=== PATIENT | female | born 1950 | race Caucasian/White ===

== ENCOUNTER → 2017-06-22 13:56 | Outpatient (REF) | payer MEDICARE, OTHER, SELFPAY ==
[2017-06-22 18:21] LABS: Basophils # 0.1 K/mm3 (0-0.2); Basophils % 0.6 % (0.1-2.0); Eosinophils # 0.1 K/mm3 (0.0-0.4); Eosinophils % 1.3 % (0.1-12.0); Hematocrit 48.1 % (37.0-47.0); Hemoglobin 15.9 g/dL (12.2-16.2); Mean Corpuscular Hemoglobin 29.5 pg (27.0-31.2); Mean Corpuscular Volume 89.4 fl (81-99); Mean Platelet Volume 8.9 fl (7.4-10.4); Monocytes # 0.3 K/mm3 (0.1-1.0); Monocytes % 3.4 % (1.7-9.3); Neutrophils # 5.5 K/mm3 (1.8-7.8); Neutrophils % 69.7 % (37.0-80.0); Platelet Count 298 K/mm3 (142-424); Red Blood Count 5.38 M/mm3 (4.20-5.40); Red Cell Distribution Width 13.1 % (11.5-17.5); White Blood Count 7.8 K/mm3 (4.8-10.8)
[2017-06-22 20:03] LABS: Alanine Aminotransferase 25 U/L (12-78); Albumin Level 3.8 gm/dL (3.4-5.0); Albumin/Globulin Ratio 1.1 (1.1-1.8); Alkaline Phosphatase 89 U/L (46-116); Anion Gap 13.1 mEq/L (5-15); Aspartate Amino Transferase 14 U/L (15-37); Bilirubin,Total 0.3 mg/dL (0.2-1.0); Blood Urea Nitrogen 9 mg/dL (7-18); Calcium 8.9 mg/dL (8.5-10.1); Carbon Dioxide 31 mmol/L (21.0-32.0); Chloride 99 mmol/L (98-107); Chol/HDL Ratio 4.8 (1-3.5); Cholesterol 187 mg/dL (140-200); Creatinine,Serum 0.72 mg/dL (0.55-1.02); Estimated Glomerular Filt Rate 80 ml/min (>60); Free T4 (Free Thyroxine) 1.01 ng/dl (0.76-1.46); GFR (African American) 97 ML/MIN (>60); Globulin 3.6 gm/dl (1.3-3.2); Glucose 261 mg/dL (74-106); HDL Cholesterol 39 mg/dL (29-89); LDL Cholesterol 125 mg/dL (0-130); Potassium 4.1 mmoL/L (3.5-5.1); Sodium 139 mmol/L (136-145); Thyroid Stimulating Hormone 1.53 uIU/ml (0.358-3.740); Total Protein,Serum 7.4 gm/dL (6.4-8.2); Triglycerides 116 mg/dL (30-200); VLDL Cholesterol 23 mg/dL (0-40)
[2017-06-22 22:29] LABS: Hemoglobin A1C 9.2 % (0.0-7.0)
[2017-06-27 18:16] LABS: Vitamin D 25 Hydroxy 22.6 ng/mL (30.0-100.0)
== END ==
LOC: LAB 13:56
PROVIDERS: Visit Provider Nurse Practitioner Family
DX: R53.83 Other fatigue (principal); E11.9 Type 2 diabetes mellitus without complications
CPT/HCPCS: 80053; 80061; 82652; 83036; 84439; 84443; 85025

== ENCOUNTER 2017-07-31 06:57 | Day surgery (SDC) | payer MEDICARE, OTHER, SELFPAY ==
[2017-07-30 14:24] VITALS: BMI 22.4
[2017-07-31] VITALS (17 sets, daily range): BP systolic 119–191; BP diastolic 55–89; PULSE 71–89; RESP 12–20; TEMP 36.4–36.6; O2SAT 94–100
[2017-07-31 07:57] LABS: POC Glucose,Bedside 169 mg/dL (70-110)
--- NOTE | 2017-07-31 08:29 | SUR.OPER ---
hot snare used on specimen E- distal rectal colon polyp. 200 cautery, 25 coag. grounded to right flank. skin intact upon removal.
--- NOTE | 2017-07-31 08:36 | HMH.SCOPE ---
- Procedure: Date: 07/31/17 Procedure Performed:: 1. Esophagogastroduodenoscopy with biopsies and balloon dilatation of distal esophageal stricture 2. Total colonoscopy with polypectomy by biopsy forceps and snare Indications:: 67-year-old white female referred by Dr. Pillai for colonoscopy. Patient apparently had colonoscopy but she states 15 or 20 years ago and apparently had polyps removed but had not had a follow-up colonoscopy. She was sent for surgical consultation. The patient stated that she had developed pancreatitis after her last colonoscopy. Upon review of the record I was unable to locate any report of a colonoscopy but she did have an ERCP in 2000 for apparent biliary pancreatitis by Dr. Clark Bautista. Patient describes some symptoms of postprandial nausea. She also stated that for at least several weeks she has had some dysphagia type symptoms particularly with taking metformin. She states that she often has to stand upright to allow them to pass. She does take some intermittent random but does not take any antacids. Plan was made to proceed with colonoscopy as well as upper endoscopy. Performing Provider:: Jeff Joyce MD Referring Provider:: Rosas Sedation:: Versed 9 mg, fentanyl 200 mcg. Procedure:: Consent was obtained and patient was taken to same-day surgery endoscopy procedure room. She was positioned in a lateral decubitus position. Adequate intravenous sedation was achieved with titration of Versed and fentanyl. Olympus endoscope was inserted via the oropharynx. Initially it was difficult to pass beyond the pharynx possibly due to lack of patient's swallowing due to sedation. Ultimately it was advanced into the esophagus. Majority of the esophagus appeared normal. However in the distal esophagus there was an appreciable somewhat ulcerated appearing stricture/ring. There was also a hiatal hernia. Stomach was cannulated and insufflated and retroflexion revealed a moderate hiatal hernia. This was sliding-type. Gastric antral mucosal biopsies obtained for CLOtest for H. pylori. Gastric biopsy was obtained. Tolerance was traversed and the endoscope was advanced into the duodenum which appeared unremarkable. Endoscope was withdrawn into the distal esophagus. A couple biopsies were obtained of the somewhat ulcerated. Stricture. This was then dilated using the pneumatic dilator sequentially to 18 mm, 19 mm, and 20 mm. Additional biopsies obtained immediately distal to this at the site of possible Alejandro's. This was sent same specimen esophageal stricture. The endoscope was then withdrawn. Patient was then positioned for colonoscopy. Variable stiffness Olympus colonoscope was inserted via the anus. It was advanced to the cecum. Colonic preparation was fair as there was some particulate liquid stool and this was suctioned free. Ultimately the ileocecal valve and appendiceal orifice were clearly identified. Colonoscope was withdrawn through the colon with careful surveillance. There are minimal very rare diverticuli in the sigmoid colon. The rectosigmoid region there are some hyperplastic appearing polyps which were biopsied using cold biopsy forceps. There is also a couple of hyperplastic appearing polyps in the rectum and these were biopsied as well. Retroflexion within the rectum revealed what appeared to be an adenomatous appearing polyp in the distal rectum. This was removed with minor difficulty with hot snare. It was sent as distal rectal polyp. Colonoscope was withdrawn. Findings:: Sliding hiatal hernia Distal esophageal stricture Possible Alejandro's Probable rectal hyperplastic polyps Possible distal rectal adenomatous polyp Specimens:: Gastric biopsy CLOtest Distal esophageal stricture Polyps Recommendations:: She likely will need at least 6 proton pump inhibitors. Pending the pathology. Likely repeat colonoscopy in 5 years pending pathology. Complications:: None immedi
== END 2017-07-31 09:05 | disposition home or self-care (01) ==
LOC: OUTP 07:00
PROVIDERS: PCP Nurse Practitioner Family; Visit Provider Surgery
PROC: 0DJ08ZZ Inspection of Upper Intestinal Tract, Via Natural or Artificial Opening Endoscopic (ICD-10-PCS; CPT 43235; principal; 2017-07-31 07:30)
DX: Z12.11 Encounter for screening for malignant neoplasm of colon (principal); K63.5 Polyp of colon; K44.9 Diaphragmatic hernia without obstruction or gangrene; K22.2 Esophageal obstruction; Z79.899 Other long term (current) drug therapy; K29.50 Unspecified chronic gastritis without bleeding; K21.0 Gastro-esophageal reflux disease with esophagitis
CPT/HCPCS: 43239; 43249; 45380; 45384; 82962; 87339; 88305; 99152; 99153; C1726

== ENCOUNTER → 2017-08-06 09:32 | Outpatient (REF) | payer MEDICARE, OTHER, SELFPAY | LOC: LAB 09:32 | PROVIDERS: Visit Provider Nurse Practitioner Family | DX: N39.0 Urinary tract infection, site not specified (principal) | CPT/HCPCS: 87086; 87088; 87186 ==

== ENCOUNTER → 2017-09-17 15:37 | Outpatient (REF) | payer MEDICARE, OTHER, SELFPAY ==
[2017-09-17 17:59] LABS: Hemoglobin A1C 7.4 % (0.0-7.0)
== END ==
LOC: LAB 15:37
PROVIDERS: Visit Provider Nurse Practitioner Family
DX: E11.9 Type 2 diabetes mellitus without complications (principal)
CPT/HCPCS: 83036

== ENCOUNTER → 2017-09-19 14:32 | Outpatient (REF) | payer MEDICARE, OTHER, SELFPAY ==
[2017-09-19 18:52] LABS: Amphetamine/Metha Screen,Urine Negative ng/mL (<1000); Barbiturates Screen,Urine Negative ng/mL (<200); Benzodiazepines Screen,Urine Negative ng/mL (200); Cannabinoid Screen,Urine Negative ng/mL (<50); Cocaine Screen,Urine Negative ng/g (<300); Methadone Screen,Urine Negative ng/mL (<300); Opiate Screen,Urine Negative ng/mL (<300); Phencyclidine Screen,Urine Negative ng/mL (<25)
== END ==
LOC: LAB 14:32
PROVIDERS: Visit Provider Nurse Practitioner Family
DX: Z79.899 Other long term (current) drug therapy (principal)
CPT/HCPCS: 80305

== ENCOUNTER → 2018-02-04 11:46 | Outpatient (REF) | payer MEDICARE, OTHER, SELFPAY ==
[2018-02-05 19:13] LABS: Creatinine, Urine 82.7 mg/dL (Not Estab.); Microalbumin, Urine 7.7 ug/mL (Not Estab.)
== END ==
LOC: LAB 11:46
PROVIDERS: PCP Nurse Practitioner Family; Visit Provider Nurse Practitioner Family
DX: E11.9 Type 2 diabetes mellitus without complications (principal)
CPT/HCPCS: 82043; 82570

== ENCOUNTER → 2018-02-14 09:41 | Outpatient (CLI) | payer MEDICARE, OTHER, SELFPAY | PROVIDERS: PCP Nurse Practitioner Family; Visit Provider Nurse Practitioner Family | DX: E11.9 Type 2 diabetes mellitus without complications (principal) | CPT/HCPCS: 97802; G0108 ==

== ENCOUNTER → 2018-02-19 09:42 | Outpatient (CLI) | payer MEDICARE, OTHER, SELFPAY ==
--- NOTE | 2018-02-19 10:07 | MM_ITS ---
MM Dig screening mamm BI w/CAD ORDERING PHYSICIAN : Stephani Black PATIENT AGE: 68 years GENDER: Female COMPARISON: Digital mammogram July 2010, film screen mammogram May 2007 INDICATION: ITS.REASON: screening. No hormones. No new complaints noncontributory family history TECHNIQUE: Standard CC and MLO images were obtained. R2 CAD reviewed. FINDINGS: Moderately dense breast tissue remains throughout central breast However we see no dominant mass nor suspicious calcifications. Benign vascular calcifications again noted No suspicious or dominant mass. No suspicious calcifications. Routine Follow-up one year recommended IMPRESSION: No significant new findings. Stable bilateral mammogram. Follow-up in one year recommended BI-RADS Category: 1 Negative RECOMMENDED FOLLOW-UP: 1YR 1 YEAR FOLLOW-UP (A letter has been sent to the patient regarding results of the study.)
[2018-02-19 10:29] LABS: Basophils % 0.5 % (0.1-2.0); Eosinophils # 0.1 K/mm3 (0.0-0.4); Eosinophils % 1.9 % (0.1-12.0); Hematocrit 46.8 % (37.0-47.0); Hemoglobin 15.1 g/dL (12.2-16.2); Lymphocytes # 1.5 K/mm3 (0.7-4.5); Mean Corpuscular HGB Conc 32.3 g/dL (31.8-35.4); Mean Corpuscular Hemoglobin 29.1 pg (27.0-31.2); Mean Corpuscular Volume 89.9 fl (81-99); Mean Platelet Volume 7.4 fl (7.4-10.4); Monocytes # 0.3 K/mm3 (0.1-1.0); Monocytes % 4.5 % (1.7-9.3); Neutrophils # 5.1 K/mm3 (1.8-7.8); Neutrophils % 72.1 % (37.0-80.0); Platelet Count 292 K/mm3 (142-424); Red Cell Distribution Width 13.8 % (11.5-17.5)
[2018-02-19 11:33] LABS: Alanine Aminotransferase 15 U/L (12-78); Albumin Level 3.5 gm/dL (3.4-5.0); Alkaline Phosphatase 80 U/L (46-116); Anion Gap 12.4 mEq/L (5-15); Aspartate Amino Transferase 11 U/L (15-37); Bilirubin,Total 0.5 mg/dL (0.2-1.0); Blood Urea Nitrogen 10 mg/dL (7-18); Calcium 8.6 mg/dL (8.5-10.1); Carbon Dioxide 28 mmol/L (21.0-32.0); Chloride 103 mmol/L (98-107); Creatinine,Serum 0.59 mg/dL (0.55-1.02); Estimated Glomerular Filt Rate 101 ml/min (>60); Free T4 (Free Thyroxine) 0.98 ng/dl (0.76-1.46); GFR (African American) 122 ML/MIN (>60); Globulin 3.4 gm/dl (1.3-3.2); Glucose 168 mg/dL (74-106); Potassium 4.4 mmoL/L (3.5-5.1); Sodium 139 mmol/L (136-145); Total Protein,Serum 6.9 gm/dL (6.4-8.2)
[2018-02-19 12:51] LABS: Hemoglobin A1C 7.5 % (0.0-7.0)
[2018-02-20 11:36] LABS: Vitamin D 25 Hydroxy 31.4 ng/mL (30.0-100.0)
== END ==
PROVIDERS: PCP Nurse Practitioner Family; Visit Provider Nurse Practitioner Family
DX: R53.83 Other fatigue (principal); E11.9 Type 2 diabetes mellitus without complications; Z12.31 Encounter for screening mammogram for malignant neoplasm of breast
CPT/HCPCS: 36415; 77067; 80053; 82652; 83036; 84439; 85025

== ENCOUNTER → 2018-03-12 11:02 | Outpatient (CLI) | payer MEDICARE, OTHER, SELFPAY | PROVIDERS: PCP Nurse Practitioner Family; Visit Provider Nurse Practitioner Family | DX: F17.200 Nicotine dependence, unspecified, uncomplicated (principal); R06.02 Shortness of breath | CPT/HCPCS: 94060; 94640 ==

== ENCOUNTER → 2018-09-16 13:47 | Outpatient (CLI) | payer MEDICARE, OTHER, SELFPAY ==
[2018-09-16 14:34] LABS: Alanine Aminotransferase 17 U/L (12-78); Alkaline Phosphatase 92 U/L (46-116); Aspartate Amino Transferase 8 U/L (15-37); Bilirubin,Total 0.3 mg/dL (0.2-1.0); Blood Urea Nitrogen 14 mg/dL (7-18); Carbon Dioxide 29 mmol/L (21.0-32.0); Chloride 101 mmol/L (98-107); Chol/HDL Ratio 5.1 (1-3.5); Cholesterol 214 mg/dL (140-200); Creatinine,Serum 0.67 mg/dL (0.55-1.02); Estimated Glomerular Filt Rate 87 ml/min (>60); GFR (African American) 105 ML/MIN (>60); Globulin 4.1 gm/dl (1.3-3.2); Glucose 208 mg/dL (74-106); HDL Cholesterol 42 mg/dL (29-89); LDL Cholesterol 157 mg/dL (0-130); Sodium 137 mmol/L (136-145); T4 (Thyroxine) 8.2 ug/dl (4.7-13.3); Thyroid Stimulating Hormone 1.98 uIU/ml (0.358-3.740); Total Protein,Serum 8.1 gm/dL (6.4-8.2); Triglycerides 76 mg/dL (30-200); VLDL Cholesterol 15 mg/dL (0-40)
[2018-09-17 10:14] LABS: Vitamin D 25 Hydroxy 23.3 ng/mL (30.0-100.0)
[2018-09-17 10:20] LABS: Creatinine, Urine 47.9 mg/dL (Not Estab.); Microalbumin, Urine 5.5 ug/mL (Not Estab.)
== END ==
PROVIDERS: Visit Provider Nurse Practitioner Family
DX: E11.9 Type 2 diabetes mellitus without complications (principal); Z79.84 Long term (current) use of oral hypoglycemic drugs
CPT/HCPCS: 80053; 80061; 82043; 82570; 82652; 84436; 84443

== ENCOUNTER → 2018-09-17 13:24 | Outpatient (CLI) | payer MEDICARE, OTHER, SELFPAY ==
[2018-09-17 13:54] LABS: Basophils % 0.6 % (0.1-2.0); Eosinophils # 0.1 K/mm3 (0.0-0.4); Eosinophils % 1.4 % (0.1-12.0); Hematocrit 45.5 % (37.0-47.0); Hemoglobin 15.1 g/dL (12.2-16.2); Lymphocytes # 2.3 K/mm3 (0.7-4.5); Lymphocytes % 31.9 % (10-50); Mean Corpuscular HGB Conc 33.3 g/dL (31.8-35.4); Mean Corpuscular Hemoglobin 28.8 pg (27.0-31.2); Mean Corpuscular Volume 86.5 fl (81-99); Mean Platelet Volume 7.9 fl (7.4-10.4); Monocytes # 0.3 K/mm3 (0.1-1.0); Monocytes % 3.9 % (1.7-9.3); Neutrophils # 4.4 K/mm3 (1.8-7.8); Neutrophils % 62.1 % (37.0-80.0); Platelet Count 317 K/mm3 (142-424); Red Blood Count 5.26 M/mm3 (4.20-5.40); Red Cell Distribution Width 13.6 % (11.5-17.5); White Blood Count 7.1 K/mm3 (4.8-10.8)
[2018-09-17 14:08] LABS: Hemoglobin A1C 7.4 % (0.0-7.0)
== END ==
PROVIDERS: PCP Nurse Practitioner Family; Visit Provider Nurse Practitioner Family
DX: E11.9 Type 2 diabetes mellitus without complications (principal); Z79.84 Long term (current) use of oral hypoglycemic drugs
CPT/HCPCS: 83036; 85025

== ENCOUNTER → 2018-10-17 10:33 | Outpatient (CLI) | payer MEDICARE, OTHER, SELFPAY ==
--- NOTE | 2018-10-17 10:40 | XR_ITS ---
XR chest 2V HISTORY: ITS.REASON: pain ORDERING PHYSICIAN: Stephani Black APRN PATIENT AGE: 68 years COMPARISON: 04/12/2016 FINDINGS: The cardiomediastinal silhouette and pulmonary vascularity are within normal limits. COPD with chronic interstitial changes. Fibrotic changes are present in the lung bases left more so than right. No lobar consolidation or collapse. There is kyphosis of the thoracic spine. IMPRESSION: COPD with chronic pulmonary fibrotic changes
== END ==
PROVIDERS: PCP Nurse Practitioner Family; Visit Provider Nurse Practitioner Family
DX: M54.9 Dorsalgia, unspecified (principal); R07.81 Pleurodynia; J44.9 Chronic obstructive pulmonary disease, unspecified
CPT/HCPCS: 71046

== ENCOUNTER → 2018-10-29 16:31 | Outpatient (CLI) | payer MEDICARE, OTHER, SELFPAY | PROVIDERS: Visit Provider Urology | DX: R39.89 Other symptoms and signs involving the genitourinary system (principal) | CPT/HCPCS: 87086; 87088; 87186 ==

== ENCOUNTER → 2019-12-12 12:32 | Outpatient (CLI) | payer MEDICARE, OTHER, SELFPAY ==
--- NOTE | 2019-12-12 12:43 | US_ITS ---
APPROVED REPORT Exam Type: Lower Extremity Segmental Pressures Field Observer: Myesha Villanueva RVT Indications Claudication: Bilaterally Current Smoker Risk Factors Diabetes Pressures/Indices Right Indices Left Indices Brachial 72.00 mmHg Brachial 93.00 mmHg Low Thigh 56.00 mmHg 0.60 Low Thigh 86.00 mmHg 0.92 Calf 33.00 mmHg 0.35 Calf 53.00 mmHg 0.57 Ankle(PT) 32.00 mmHg 0.34 Ankle(PT) 52.00 mmHg 0.56 Ankle(DP) 43.00 mmHg 0.46 Ankle(DP) 44.00 mmHg 0.47 Digit 37.00 mmHg 0.40 Digit 36.00 mmHg 0.39 Findings RT ADWOA:0.34 LT ADWOA:0.56 RT TBI:0.40 LT TBI:0.39 DIMINISHED WAVEFORMS BILATERAL DIMINISHED PULSES BILATERAL Conclusion RT ADWOA:0.34 LT ADWOA:0.56 RT TBI:0.40 LT TBI:0.39 DIMINISHED WAVEFORMS BILATERAL DIMINISHED PULSES BILATERAL SEVERS RIGHT AND MODERATE LEFT ARTERIAL DISEASE LOWER EXTREMITY Critical Notification Physician Notified Date: 12/12/2019 Time: 13:23 Physician Name: NURSECARINA MIDDLETON OFFICE Electronically signed by : Berny Ann MD 12/12/2019 17:37:30
== END ==
PROVIDERS: PCP Family Medicine; Visit Provider Family Medicine
DX: I73.9 Peripheral vascular disease, unspecified (principal); E11.9 Type 2 diabetes mellitus without complications; F17.200 Nicotine dependence, unspecified, uncomplicated; Z79.84 Long term (current) use of oral hypoglycemic drugs
CPT/HCPCS: 93923; 93924

== ENCOUNTER → 2020-01-05 11:50 | Outpatient (CLI) | payer MEDICARE, OTHER, SELFPAY ==
--- NOTE | 2020-01-05 | CA_ITS ---
APPROVED REPORT Exam: Pharmacologic Technologist: Marilu Smyth Ht: 5 ft 4 in Wt: 130 lbs BSA: 1.63 m2 HR: 65 bpm BP: 175/66 mmHg Indications: Shortness of Breath Medical History Medications: Amlodipine,,,,, Aspirin,,,,, Glimepiride,,,,, RoSUVASTATIN,,,,, Stress Test Details Test: LEXISCAN HR Resting HR: 67 bpm Max Heart Rate (APMHR): 148 bpm Max HR Achieved: 93 bpm Target HR (85% APMHR): 125 bpm % of APMHR: 62 Recovery HR: 86 bpm BP Resting BP: 175.0/66.0 mmHg Max BP: 175.0/66.0 mmHg Recovery BP: 147.0/61.0 mmHg ECG Clinical Reason for Termination: Completed Protocol Exercise duration: 04:02 min Highest Stage Achieved: Exercise capacity: 1.0 METs Stress ECG Conclusion Resting ECG: Normal sinus rhythm, NSSTW abnormalities Symptoms: None Arrhythmias/Ectopy: Rare PVC ST-T Changes: < 1.[address] segment changes Conclusion: Non-Diagnostic Lexiscan stress test. Patient received the infusion per protocol without chest pain. Baseline EKG is sinus with NSSTW abnormalities that preclude diagnostic interpretation. Rare PVC noted. See the nuclear report for further information. Test Summary REST . . . . . . . Resting REST 07:29 . . 67 . 175/ 66 . . Stage 1 . . . . . . . Myoview Injected Stage 1 01:00 . . 89 . . . . Stage 2 01:00 . . 93 . 154/ 56 . . Stage 3 01:00 . . 87 . 157/ 63 . . Stage 4 01:00 . . 87 . 150/ 57 . . Stage 4 01:02 . . 87 . 150/ 57 . Stop exercise at 04:02 RECOVERY 01:00 . . 85 . . . . RECOVERY 02:00 . . 86 . . . . RECOVERY 03:00 . . 85 . 147/ 61 . . RECOVERY 03:44 . . 83 . 147/ 61 . . Electronically signed by : Teodoro Braden, 01/05/2020 21:41:47
--- NOTE | 2020-01-05 11:50 | NM_ITS ---
APPROVED REPORT Exam: Nuclear Stress Test Indication: SOB, Fatigue, HTN, DM, High cholesterol, Tobacco use Patient Location: Outpatient Stress Tech: Marilu Smyth [place] Tech:Vanesa Berkowitz, ARRT, RT (R)(N) Ht: 5 ft 4 in Wt: 130 lbs Bra Size: C HR: 65 bpm BP: 175/66 mmHg BSA: 1.63 m2 BMI: 22.3 History: SOB, Fatigue, HTN, DM, High cholesterol, Tobacco use Procedure: Patient received a 0.4 mg of intravenous Lexiscan, resting heart rate 65 bpm, resting blood pressure 175/66 mmHg, with Lexiscan maximum heart rate achived was 93 bpm which is Less than 85 % of the maximum predicted heart rate and blood pressure was 154/56 mmHg. With Lexiscan, patient denied any complaint of chest pain. Electrocardiogram Resting electrocardiogram showed sinus rhythm nonspecific ST-T changes, with Lexiscan there is less than 1.[address] segment depression from the baseline EKG. The EKG portion of the Lexiscan Myoview is nondiagnostic. Cardiac Stress and Resting SPECT Images: Cardiac Stress and Resting SPECT images were obtained using technetium 99m Myoview 31.7 mCi stress and 10.03 mCi at rest. Gated SPECT for analysis of segmental wall motion and calculation of the ejection fraction also done. Cardiac stress and resting SPECT images show uniform myocardial activity without segmental perfusion abnormality, computer derived ejection fraction is 65% with no regional wall motion abnormality, right ventricle is normal size and contractility. Conclusion: 1. The EKG portion of the Lexiscan is nondiagnostic. 2. No scintigraphic evidence of reversible ischemia seen, computer derived ejection fraction is 65% with no regional wall motion abnormality, right ventricle is normal size and contractility. 3. Normal Lexiscan Myoview study. Electronically signed by : Teodoro Braden, 01/05/2020 21:43:19
--- NOTE | 2020-01-05 11:51 | CA_ITS ---
APPROVED REPORT EXAM: Comprehensive 2D, Doppler, and color-flow Echocardiogram Boiling Tub Operator: Ellen Benavidez RDCS Ht: 5 ft 4 in Wt: 130lbs BSA: 1.63 BP: 165/70 mmHg Indications: COPD,SOA,SMOKER,HTN,HLP,KEYES 2D Dimensions LVOT 2.03 cm (M/F) 1.5-2.5 M-Mode Dimensions RVDd 1.92 cm (0.9-2.6) LVDd 4.85 cm (3.5-5.7) LVDs 3.36 cm (3.5-5.7) IVSd 0.72 cm (0.6-1.1) PWd 0.80 cm (0.6-1.1) EF (Teich) 58.20% FS 30.70% EDV (Teich) 110.20 mL ESV (Teich) 46.10 mL LV Diastology E/A Ratio 1.29 Mitral Valve MV A Velocity 62.00 (40-130 cm/s) Left Ventricle Left atrium is mildly enlarged, left ventricle is normal size, mild concentric left ventricular hypertrophy, visually estimated ejection fraction 55% with no regional wall motion abnormality, diastolic parameters are inconclusive. Right Ventricle Right atrium and right ventricular normal size and contractility. Aortic Valve Aortic valve is minimally thickened and fibrosed, there is no aortic stenosis or aortic insufficiency. Mitral Valve Mitral valve is grossly normal, there is mild mitral regurgitation. Tricuspid Valve Tricuspid valve is grossly normal, there is mild tricuspid regurgitation. Calculated right ventricular systolic pressure is 41 mmHg. Pulmonic Valve Pulmonic valve is poorly visualized. Great Vessels Aortic root is normal size. Pericardium No significant pericardial effusion noted Conclusion 1. Mildly enlarged left atrium, normal left ventricular size, mild concentric left ventricular hypertrophy, visually estimated ejection fraction 55% with no regional wall motion abnormality, diastolic parameters are inconclusive. 2. Mild mitral and tricuspid regurgitation, calculated right ventricular systolic pressure is 41 mmHg. 3. No significant pericardial effusion noted. Electronically signed by : Teodoro Braden, 01/05/2020 21:29:22
--- NOTE | 2020-01-05 13:27 | HMH.ITSHM ---
Current Home Medications as stated by this patient Sandi Malone or credit representative. []ASA GLIMEPRIDE ROSUVASTATIN AMLODIPINE
== END ==
PROVIDERS: PCP Family Medicine; Visit Provider Physician Assistant
DX: E78.5 Hyperlipidemia, unspecified (principal); F17.200 Nicotine dependence, unspecified, uncomplicated; I10 Essential (primary) hypertension; I73.9 Peripheral vascular disease, unspecified; R06.00 Dyspnea, unspecified; R68.89 Other general symptoms and signs
CPT/HCPCS: 78452; 93017; 93306; A9502; J2785

== ENCOUNTER 2020-01-22 07:54 | Day surgery (SDC) | payer MEDICARE, OTHER, SELFPAY ==
[2020-01-22] VITALS (38 sets, daily range): BP systolic 95–188; BP diastolic 44–95; PULSE 61–87; RESP 16; TEMP 36.4; O2SAT 85–100; BMI 22.1
[2020-01-22 08:27] LABS: Basophils # 0.1 K/mm3 (0-0.2); Basophils % 0.6 % (0.1-2.0); Eosinophils # 0.2 K/mm3 (0.0-0.4); Eosinophils % 1.9 % (0.1-12.0); Hematocrit 47.7 % (37.0-47.0); Lymphocytes # 2.3 K/mm3 (0.7-4.5); Lymphocytes % 25.1 % (10-50); Mean Corpuscular HGB Conc 33.6 g/dL (31.8-35.4); Mean Corpuscular Hemoglobin 29.7 pg (27.0-31.2); Mean Corpuscular Volume 88.5 fl (81-99); Mean Platelet Volume 7.8 fl (7.4-10.4); Monocytes # 0.4 K/mm3 (0.1-1.0); Monocytes % 4.7 % (1.7-9.3); Neutrophils # 6.2 K/mm3 (1.8-7.8); Neutrophils % 67.6 % (37.0-80.0); Platelet Count 301 K/mm3 (142-424); Red Blood Count 5.38 M/mm3 (4.20-5.40); White Blood Count 9.2 K/mm3 (4.8-10.8)
[2020-01-22 08:31] LABS: Chloride 103 mmol/L (98-107)
[2020-01-22 08:32] LABS: Potassium 3.9 mmoL/L (3.5-5.1); Sodium 141 mmol/L (136-145)
[2020-01-22 08:34] LABS: Blood Urea Nitrogen 11 mg/dl (7-17); Creatinine Clearance Estimated 47 mL/min (50-200); Estimated Glomerular Filt Rate 98 ml/min (>60); GFR (African American) 119 ML/MIN (>60)
[2020-01-22 08:35] LABS: Anion Gap 12.9 mEq/L (5-15); Calcium 9.5 mg/dl (8.4-10.2); Carbon Dioxide 29 mmol/L (22.0-30.0); Glucose 169 mg/dl (74-100)
[2020-01-22 08:55] LABS: Coronavirus 19 IgG Antibody Negative (Negative); Coronavirus 19 IgM Antibody Negative (Negative)
--- NOTE | 2020-01-22 09:00 | IR_ITS ---
APPROVED REPORT Patient Location: Outpatient PROCEDURES Catheter placed in the abdominal aorta Abdominal aortography Repositioning of the catheter in the abdominal aorta Bilateral iliofemoral runoff Bare-metal stent deployment to the ostial proximal right common iliac artery INDICATION ADWOA 0.3 right leg 0.56 left leg, [place] class III claudication, Peripheral artery disease Informed consent was obtained prior to the procedure. COMPLICATIONS NONE Estimated Blood Loss: LESS THAN 10 ML TECHNIQUE 1% lidocaine used anesthetize the right groin the right femoral artery was accessed via the Salinger technique and a 5 Bahamian sheath was placed in the right femoral artery. A pigtail catheter was advanced and abdominal aortography was performed. The catheter was then repositioned and bilateral iliofemoral runoff was performed. At the end of the procedure therapeutic heparin was administered and the 5 Bahamian sheath was exchanged for a long 6 Bahamian bright tip sheath. An 8 mm x 27 mm bare-metal stent was deployed at 12 oxana reducing the stenosis to 20%. The balloon was then advanced into the aorta and proximal portion of the stent and then deployed at 16 oxana reducing the stenosis to less than 10%. Excellent angiographic results were obtained. At the end of the procedure the apparatus was removed the patient was transferred to the postop holding area stable condition for sheath removal ANGIOGRAPHIC RESULTS The left renal artery is singular and appears to have a high-grade greater than 70% proximal stenosis. The right renal artery is singular and has calcified proximal 20 to 30% stenosis The infrarenal abdominal aorta is densely calcified with a mid vessel eccentric 20% stenosis The right common iliac artery has an eccentric highly calcified proximal greater than 80% stenosis. The right internal iliac artery is patent. The right external iliac artery has 30% calcified stenoses. The right common femoral artery appears normal. The right profunda femoris artery is normal. The right superficial femoral artery is patent in its proximal segment and has 70 and 90% stenoses at Doc's canal. The right popliteal artery has 30 to 40% mid vessel stenoses. Distally there appears to be single-vessel runoff to the foot via the anterior tibialis artery The left common iliac artery has proximal calcified 10 to 20% stenosis. The left internal iliac artery is patent. The left external iliac artery has mild 20% stenoses. The left common femoral artery has mild 10 to 20% stenoses. The left profunda femoris artery is widely patent. The left superficial femoral artery has proximal eccentric calcified greater than 50% stenoses with a mid vessel greater than 90% stenosis at Dco's canal. The left popliteal artery has diffuse proximal 50% stenoses with a mid vessel 80% stenosis at the pre-geniculate level. Distally the anterior tibialis artery is subtotally occluded in its proximal segment but does reconstitute. The posterior tibialis artery is proximally occluded but appears to reconstitute via collaterals. There is scant two-vessel runoff to the left foot. IMPRESSION Severe right common iliac artery disease as described above Successful stent to the right common iliac artery severe disease reduced to 0% with one bare-metal stent Persistent severe stenosis in the left superficial femoral artery and left popliteal artery as described above Persistent severe right superficial femoral artery stenosis as described above PLAN 1. Aspirin and Plavix 2. Patient can come back to the [facility] in 3 weeks and will undergo revascularization of the left SFA left popliteal artery 3. 2 weeks after t
[2020-01-22 14:33] LABS: CATHL Activated Clotting Time > 400 SEC (74-125)
--- NOTE | 2020-01-22 14:34 | HMH.PHACLD ---
Sandi Malone has received discharge medication counseling on the following medications: NEW MEDICATION: PLAVIX CONTINUE MEDICATIONS: ASPIRIN, CRESTOR PATIENT HAD A PERIPHERAL STENT. FAM/ARB AND BB ARE NOT INDICATED.
[2020-01-22 14:37] LABS: CATHL Activated Clotting Time 164 SEC (74-125)
== END 2020-01-22 16:17 | disposition home or self-care (01) ==
PROVIDERS: PCP Family Medicine; Visit Provider Internal Medicine
DX: E11.51 Type 2 diabetes mellitus with diabetic peripheral angiopathy without gangrene (principal); E78.5 Hyperlipidemia, unspecified; I10 Essential (primary) hypertension; I70.213 Atherosclerosis of native arteries of extremities with intermittent claudication, bilateral legs; R06.00 Dyspnea, unspecified; I27.20 Pulmonary hypertension, unspecified; I77.1 Stricture of artery; Z88.2 Allergy status to sulfonamides; Z88.0 Allergy status to penicillin; Z88.8 Allergy status to other drugs, medicaments and biological substances; Z72.0 Tobacco use; Z79.899 Other long term (current) drug therapy; J44.9 Chronic obstructive pulmonary disease, unspecified
CPT/HCPCS: 37221; 80048; 85025; 85347; 86328; 99152; 99153; C1725; C1769; C1876; C1894; J1644; J2720; Q9967

== ENCOUNTER → 2020-02-24 11:50 | Outpatient (CLI) | payer MEDICARE, OTHER, SELFPAY ==
[2020-02-24 12:19] LABS: Basophils % 0.5 % (0.1-2.0); Eosinophils # 0.1 K/mm3 (0.0-0.4); Eosinophils % 2.1 % (0.1-12.0); Hemoglobin 15.5 g/dL (12.2-16.2); Lymphocytes # 1.3 K/mm3 (0.7-4.5); Lymphocytes % 27.3 % (10-50); Mean Corpuscular HGB Conc 32.2 g/dL (31.8-35.4); Mean Corpuscular Hemoglobin 29.1 pg (27.0-31.2); Mean Corpuscular Volume 90.3 fl (81-99); Mean Platelet Volume 7.5 fl (7.4-10.4); Monocytes # 0.3 K/mm3 (0.1-1.0); Monocytes % 5.6 % (1.7-9.3); Neutrophils # 3.1 K/mm3 (1.8-7.8); Neutrophils % 64.5 % (37.0-80.0); Platelet Count 235 K/mm3 (142-424); Red Blood Count 5.32 M/mm3 (4.20-5.40); Red Cell Distribution Width 13.9 % (11.5-17.5); White Blood Count 4.8 K/mm3 (4.8-10.8)
[2020-02-24 13:07] LABS: Chloride 104 mmol/L (98-107); Potassium 4.3 mmoL/L (3.5-5.1); Sodium 140 mmol/L (136-145)
[2020-02-24 13:09] LABS: Alanine Aminotransferase 10 U/L (12-78); Aspartate Amino Transferase 20 U/L (14-36); Bilirubin,Unconjugated 0.6 mg/dL (0.0-1.1); Blood Urea Nitrogen 13 mg/dl (7-17); Estimated Glomerular Filt Rate 82 ml/min (>60); GFR (African American) 100 ML/MIN (>60)
[2020-02-24 13:10] LABS: Albumin Level 4.4 g/dl (3.5-5.0); Alkaline Phosphatase 74 U/L (38-126); Anion Gap 12.3 mEq/L (5-15); Bilirubin,Indirect 0.6 mg/dL (0.0-0.9); Bilirubin,Total 0.6 mg/dl (0.2-1.3); Calcium 9.3 mg/dl (8.4-10.2); Carbon Dioxide 28 mmol/L (22.0-30.0); Chol/HDL Ratio 2.8 (1-3.5); Cholesterol 121 mg/dl (140-200); Glucose 140 mg/dl (74-100); HDL Cholesterol 43 mg/dl (40-60); Total Protein,Serum 7.6 g/dl (6.3-8.2); Triglycerides 58 mg/dl (30-150); VLDL Cholesterol 12 mg/dL (0-40)
[2020-02-24 13:21] LABS: Direct LDL Cholesterol 65.24 mg/dL (100-129)
[2020-02-24 17:18] LABS: Coronavirus 19 IgG Antibody Negative (Negative); Coronavirus 19 IgM Antibody Negative (Negative)
== END ==
PROVIDERS: Visit Provider Nurse Practitioner Family
DX: E78.5 Hyperlipidemia, unspecified (principal); F17.200 Nicotine dependence, unspecified, uncomplicated; I10 Essential (primary) hypertension; I73.9 Peripheral vascular disease, unspecified; R06.00 Dyspnea, unspecified; R68.89 Other general symptoms and signs
CPT/HCPCS: 36415; 80048; 80061; 80076; 85025; 86328

== ENCOUNTER 2020-02-25 08:16 | Day surgery (SDC) | payer MEDICARE, OTHER, SELFPAY ==
[2020-02-25] VITALS (42 sets, daily range): BP systolic 113–161; BP diastolic 60–83; PULSE 65–78; RESP 16–18; TEMP 36.6–36.8; O2SAT 91–99; BMI 22.3
--- NOTE | 2020-02-25 | IR_ITS ---
APPROVED REPORT Patient Location: Outpatient PROCEDURES Right femoral arterial access Left superficial femoral artery and left popliteal artery angiogram Bare-metal stent deployment to the left popliteal artery INDICATION Peripheral artery disease, Lyn class III claudication Informed consent was obtained prior to the procedure. COMPLICATIONS none Estimated Blood Loss: less than 10 mls TECHNIQUE 1% lidocaine used anesthetize the right groin the right femoral artery was accessed via the Salinger technique and a 5 Mauritian sheath this patient right femoral artery. Therapeutic heparin was administered giving a therapeutic ACT pigtail catheter was advanced into the distal abdominal aorta and an advantage wire was used to cannulate the left common iliac artery. Under fluoroscopic guidance the wire was advanced into the left popliteal artery. The 5 Mauritian sheath was then removed and a long destination sheath was advanced which the terminal and ended in the left superficial femoral artery. Left popliteal artery left superficial femoral artery angiography was performed. Following this a 6 mm x 40 mm EV 3 self-expanding stent was deployed in the left popliteal artery followed by postdilatation with a 5 mm x 40 mm balloon at 10 oxana reducing the severe stenosis to 0%. Excellent angiographic results were obtained. At the end the procedure the patient was transferred to the postop holding in stable condition for sheath removal IMPRESSION Successful stenting of the left popliteal artery greater than 90% stenosis reduced to 0% with one self-expanding bare-metal stent PLAN 1. Continue medical management 2. Consider Xarelto 2.5 twice daily plus aspirin 81 mg daily Electronically signed by : Tomas Gill, 02/25/2020 10:06:24
--- NOTE | 2020-02-25 12:10 | HMH.PHACLD ---
Sandi Malone has received discharge medication counseling on the following medications: CONTINUE MEDICATIONS: PLAVIX, ASPIRIN, CRESTOR PERIPHERAL - BETA OLGA AND FAM/ARB ARE NOT NECESSARY
[2020-02-25 13:06] LABS: CATHL Activated Clotting Time > 400 SEC (74-125)
[2020-02-25 13:11] LABS: CATHL Activated Clotting Time 172 SEC (74-125)
--- NOTE | 2020-02-25 15:00 | SUR.PHASEII ---
care to be taken over by rene mae rn on 2nd floor until pt is discharged. pt stable, r groin site free from bleeding, hematoma or any other issues. pt doing well, vs stable. rene understands all of report given to her and pt understands that she will be going to 2nd floor until discharge as an outpt. rene is to do pt discharge teaching w/ pt and once pt arrives to hospital to take pt home.
== END 2020-02-25 17:30 | disposition home or self-care (01) ==
LOC: CATHLAB 08:17 → 2ND 15:04
PROVIDERS: PCP Family Medicine; Visit Provider Internal Medicine
DX: I70.202 Unspecified atherosclerosis of native arteries of extremities, left leg (principal); Z88.0 Allergy status to penicillin; Z88.2 Allergy status to sulfonamides; Z88.8 Allergy status to other drugs, medicaments and biological substances; Z79.899 Other long term (current) drug therapy; I10 Essential (primary) hypertension; Z72.0 Tobacco use; E11.9 Type 2 diabetes mellitus without complications
CPT/HCPCS: 37224; 85347; 99152; C1725; C1766; C1769; C1876; C1894; J1644; J2720; Q9966

== ENCOUNTER → 2020-03-03 14:21 | Outpatient (CLI) | payer MEDICARE, OTHER, SELFPAY ==
--- NOTE | 2020-03-03 14:23 | CA_ITS ---
APPROVED REPORT Population Health Coach: Bernice Morales, RT(R) Indications Leg Pain Hematoma Current Smoker Angio runoffs LE 02/26/20. Knot in right groin post cath. Patient states the knot is still there but appears to be getting smaller. Risk Factors History of Lower Extremity PAD: Current Smoker Findings Groin: Right Negative Positive for Hematoma Findings Rt groin duplex negative for pseudoanuerysm. Small hematoma noted in right groin. Conclusion Rt groin duplex negative for pseudoanuerysm. Small hematoma noted in right groin. Electronically signed by : Berny Ann MD 03/03/2020 17:38:55
== END ==
PROVIDERS: PCP Family Medicine; Visit Provider Nurse Practitioner Family
DX: I77.0 Arteriovenous fistula, acquired (principal); I72.9 Aneurysm of unspecified site; T81.718A Complication of other artery following a procedure, not elsewhere classified, initial encounter
CPT/HCPCS: 93926

== ENCOUNTER 2020-06-08 18:35 | Emergency (ER) | payer MEDICARE, OTHER, SELFPAY ==
[2020-06-08 18:52] VITALS: BP 142/74; PULSE 74; RESP 16; TEMP 36.8; O2SAT 99; BMI 22.3
[2020-06-08 19:00] VITALS: BP 142/74; PULSE 74; RESP 16; TEMP 36.8; O2SAT 99; BMI 22.1
--- NOTE | 2020-06-08 19:22 | HMH.EDUTC ---
[facility] [place] Clinical Impression: Viral syndrome, Encounter for laboratory testing for COVID-19 virus Disposition: Home, Self-Care Condition on Discharge: Good Instructions: DI for COVID-19 (Suspected or Confirmed ), Coronavirus Disease 2019, Preventing the Spread of Coronavirus Discharge Instructions Additional Instructions: *Monitor Temp, Over the counter Motrin or Tylenol as directed/as needed Tylenol every 4 hours and Motrin every 6 hours (as long as your family doctor has told you that you can take it) for fever or pain. and straight to ER if unable to lower temp less than 101.0 after medication given *Warm salt water gargles may help to soothe the throat *Throat Lozenges *Warm fluids like tea with honey may help to soothe the throat *Sleep elevated *Humidifier/Vaporizer Follow up IMMEDIATELY for new or worsening symptoms or no Noticeable improvement over the next 48-72 hours. 911 for difficulty breathing or swallowing You were tested for today for COVID19 your test result should be back in the next 24-48 hours, you may call to the [facility] to see if your test results are back in the next 48 hours [phone] [facility] hours are 9am-9pm You was given a handout with instructions for Self Quarantine and Self isolation for while you wait on test results and what to do if they are positive If you are positive the Health Dept will be contacting you also Referrals: Morgan Johnson MD [Primary Care Provider] - As needed Time of Disposition: 19:38 Medical Decision Making - Suman Inquiry Pt receiving controlled substance: No Suman was queried for this patient: No Vital Signs: 06/08/20 18:52 06/08/20 19:00 Temperature 98.2 F 98.2 F Temperature Source Oral Oral Pulse Rate [Right] 74 74 Respiratory Rate 16 16 Blood Pressure [Right Arm] 142/74 H 142/74 H Blood Pressure Mean [Right Arm] 96 96 Blood Pressure Source [Right Arm] Automatic Cuff Automatic Cuff Blood Pressure Position [Right Arm] Sitting Sitting 02 Sat by Pulse Oximetry 99 99 Oxygen Delivery Method Room Air Room Air - Lab Data Lab results reviewed: Yes: I reviewed the patient's lab results. Orders (Tests/Meds): ORDERS Category Date Time Status Covid-19 Nasal PCR Sendout P&[facility] Stat Lab 06/08/20 19:06 Received [facility] [place] HPI - General Stated complaint: Aches chills weakness Time Seen by Provider: 06/08/20 19:22 Mode of Arrival: Ambulatory Source of Information: Patient Limitations: No Limitations Description of Symptoms (Recalled from Triage Doc. by RN): PATIENT C/O WEAKNESS, HEADACHE, AND BODY ACHES HEENT Symptoms (Recalled from RN notes): Yes Resp Symptoms (Recalled from RN notes): No Skin Symptoms (Recalled from RN notes): No MS Symptoms (Recalled from RN notes): No Functional Status (Recalled from RN notes): WNL - History of Present Illness Provider Complaint: Patient states that she is worried she may have flu or COVID States that she has been having body aches, chills, nasal congestion and headache States that she started feeling bad yesterday and continued to get worse States that she came in tonight to get tested after she still wasnt feeling well - Related Data Home Medications Medication Instructions Recorded Confirmed glimepiride 1 mg tablet 1 mg PO DAILY tab 12/30/19 01/13/20 rosuvastatin 10 mg tablet 10 mg PO DAILY tab 12/30/19 01/13/20 Previous Rx's Medication Instructions Recorded amlodipine 5 mg tablet 5 mg PO DAILY #30 tab 12/30/19 aspirin 81 mg tablet,delayed 81 mg PO DAILY #30 tab 12/30/19 release clopidogrel 75 mg tablet 75 mg PO QDAY #30 tab 01/27/20 losartan 50 mg tablet 50 mg PO DAILY #30 tab 03/03/20 Allergies Allergy/AdvReac Type Severity Reaction Status Date / Time Penicillins [PENICILLINS] Allergy Mild rash Verified 03/03/20 13:51 cephalexin [CEPHALEXIN] Allergy Unknown Verified 03/03/20 13:51 Cephalosporins Allergy Unknown Verified 03/03/20 13:51 [CEPHALOSPORINS] nitrofurantoin Allergy Unkno
[2020-06-08 19:43] VITALS: BP 142/74; PULSE 74; RESP 16; TEMP 36.8; O2SAT 99
[2020-06-08 20:30] LABS: UTC Influenza A Antigen Negative (Negative)
[2020-06-08 20:31] LABS: UTC Influenza B Antigen Negative (Negative)
[2020-06-10 10:10] LABS: Covid-19 Nasal PCR Sendout P&C Negative
== END 2020-06-08 19:45 | disposition home or self-care (01) ==
LOC: ER 18:51 → UTC 18:51
PROVIDERS: Emergency Provider Nurse Practitioner; PCP Family Medicine
DX: Z20.822 Contact with and (suspected) exposure to COVID-19 (principal); B34.9 Viral infection, unspecified; I10 Essential (primary) hypertension; K21.9 Gastro-esophageal reflux disease without esophagitis; J44.9 Chronic obstructive pulmonary disease, unspecified; Z88.0 Allergy status to penicillin; Z88.2 Allergy status to sulfonamides; E78.5 Hyperlipidemia, unspecified; F17.210 Nicotine dependence, cigarettes, uncomplicated; Z79.899 Other long term (current) drug therapy
CPT/HCPCS: G0463; 87804; 99202; U0004

== ENCOUNTER 2020-10-03 20:37 | Inpatient (IN) | payer MEDICARE, OTHER, SELFPAY ==
[2020-10-03] VITALS (12 sets, daily range): BP systolic 187–219; BP diastolic 86–98; PULSE 67–77; RESP 14–23; TEMP 36.8; O2SAT 94–97; BMI 22.6
--- NOTE | 2020-10-03 21:00 | PC.NURSE ---
Pt arived with Noted right side facial droop she has some Disarthria and shows some Limb Ataxia with her left arm Pt has a FSBS of 234, pt states the symtoms started 36 hours ago. Pt recieved a NIH stroke scale of [address] Pillai Notified of findings
[2020-10-03 21:04] LABS: POC Glucose,Bedside 234 (70-110)
--- NOTE | 2020-10-03 21:23 | CT_ITS ---
PROCEDURE INFORMATION: Exam: CT Angiography Neck With Contrast Exam date and time: 10/03/2020 9:23 PM Age: 70 years old Clinical indication: Patient HX: Left arm numbness; Additional info: R/O CVA TECHNIQUE: Imaging protocol: Computed tomography angiography of the neck with contrast. 3D rendering (Not supervised by radiologist): MIP and/or 3D reconstructed images were created by the technologist. Radiation optimization: All CT scans at this facility use at least one of these dose optimization techniques: automated exposure control; mA and/or kV adjustment per patient size (includes targeted exams where dose is matched to clinical indication); or iterative reconstruction. Contrast material: ISO 370; Contrast volume: 100 ml; Contrast route: INTRAVENOUS (IV); COMPARISON: No relevant prior studies available. FINDINGS: Right common carotid artery: No stenosis. No dissection or occlusion. Right internal carotid artery: Mild narrowing at the origin due to scattered calcified plaque. No dissection or occlusion. Right external carotid artery: No occlusion or stenosis of the origin. Right vertebral artery: No stenosis. No dissection or occlusion. Left common carotid artery: No stenosis. No dissection or occlusion. Left internal carotid artery: [id number] narrowing of the origin due to scattered calcified and noncalcified plaque. No dissection or occlusion. Left external carotid artery: No occlusion or stenosis of the origin. Left vertebral artery: No stenosis. No dissection or occlusion. Bones/joints: No acute fracture. Mild levoscoliosis. [id number] multilevel degenerative changes of the spine. Soft tissues: Normal. No significant soft tissue swelling. Lungs: Centrilobular emphysematous changes. Biapical scarring changes. IMPRESSION: 1. Up to moderate stenosis at the origin of the left internal carotid artery due to scattered calcified and noncalcified plaque. 2. Mild narrowing at the origin of the right internal carotid artery due to scattered calcified plaque. 3. Emphysematous changes. REFERENCES: NASCET CRITERIA. The degree of internal carotid artery stenosis is based on NASCET criteria. Normal is no stenosis. Mild is less than 50% stenosis. Moderate is 50-69% stenosis. Severe is 70% to 99% stenosis. Total occlusion is no detectable patent lumen.
--- NOTE | 2020-10-03 21:23 | CT_ITS ---
PROCEDURE INFORMATION: Exam: CT Angiography Head With Contrast, Arteriography Exam date and time: 10/03/2020 9:23 PM Age: 70 years old Clinical indication: Patient HX: Left arm numbness, symptoms for over 24hrs; Additional info: R/O CVA TECHNIQUE: Imaging protocol: Computed tomography angiography of the head with contrast. Exam focused on the arteries. 3D rendering (Not supervised by radiologist): MIP and/or 3D reconstructed images were created by the technologist. Radiation optimization: All CT scans at this facility use at least one of these dose optimization techniques: automated exposure control; mA and/or kV adjustment per patient size (includes targeted exams where dose is matched to clinical indication); or iterative reconstruction. Contrast material: ISOVUE 370; Contrast volume: 100 ml; Contrast route: INTRAVENOUS (IV); COMPARISON: CT HEAD/BRAIN WO CON 10/03/2020 9:51 PM FINDINGS: ANTERIOR CIRCULATION: Right internal carotid artery: Contain scattered calcified plaque. Intracranial segment is patent with no significant stenosis. No aneurysm. Right middle cerebral artery: Unremarkable. No occlusion or significant stenosis. No aneurysm. Right anterior cerebral artery: Unremarkable. No occlusion or significant stenosis. No aneurysm. Left internal carotid artery: Contain scattered calcified plaque. Intracranial segment is patent with no significant stenosis. No aneurysm. Left middle cerebral artery: Unremarkable. No occlusion or significant stenosis. No aneurysm. Left anterior cerebral artery: Unremarkable. No occlusion or significant stenosis. No aneurysm. POSTERIOR CIRCULATION: Right vertebral artery: Unremarkable. No occlusion or significant stenosis. No aneurysm. Left vertebral artery: Unremarkable. No occlusion or significant stenosis. No aneurysm. Basilar artery: Unremarkable. No occlusion or significant stenosis. No aneurysm. Right posterior cerebral artery: Unremarkable. No occlusion or significant stenosis. No aneurysm. Left posterior cerebral artery: Unremarkable. No occlusion or significant stenosis. No aneurysm. Brain: No definite mass, mass effect, or midline shift. Mild atrophy. Minimal periventricular and subcortical white matter hypodensities are nonspecific but likely related to chronic small vessel ischemic changes. Cerebral ventricles: No ventriculomegaly. Bones/joints: Unremarkable. No acute fracture. Soft tissues: Unremarkable. IMPRESSION: No large vessel stenosis or occlusion.
--- NOTE | 2020-10-03 21:23 | XR_ITS ---
PROCEDURE INFORMATION: Exam: XR Chest Exam date and time: 10/03/2020 9:23 PM Age: 70 years old Clinical indication: Other: Lt sided numbness; Additional info: Left numbness TECHNIQUE: Imaging protocol: XR of the chest. Views: 4 or more views. COMPARISON: CR (CHEST PA, CHEST, CHEST PA) 10/17/2018 10:56 AM FINDINGS: Lungs: Lungs are hyperinflated consistent with emphysematous changes. There are prominent bilateral interstitial markings especially in the left lower lung. Biapical scarring changes. Pleural spaces: Unremarkable. No pleural effusion. No pneumothorax. Heart/Mediastinum: Unremarkable. No cardiomegaly. Bones/joints: Unremarkable. IMPRESSION: 1. Prominent bilateral interstitial markings are likely due to chronic scarring changes. 2. Emphysematous changes.
--- NOTE | 2020-10-03 21:23 | CT_ITS ---
PROCEDURE INFORMATION: Exam: CT Head Without Contrast Exam date and time: 10/03/2020 9:23 PM Age: 70 years old Clinical indication: Numbness / parasthesia; Patient HX: Left sided numbness; Additional info: R/O CVA TECHNIQUE: Imaging protocol: Computed tomography of the head without contrast. Radiation optimization: All CT scans at this facility use at least one of these dose optimization techniques: automated exposure control; mA and/or kV adjustment per patient size (includes targeted exams where dose is matched to clinical indication); or iterative reconstruction. COMPARISON: [facility] CT HEAD W/O CONTRAST 04/12/2016 7:23 PM FINDINGS: Brain: No acute intracranial hemorrhage, mass effect or midline shift. No large acute cortical infarct. Periventricular and subcortical white matter hypodensities are nonspecific but likely related to chronic small vessel ischemic changes. Cerebral ventricles: No ventriculomegaly. Bones/joints: Unremarkable. No acute fracture. Paranasal sinuses: Visualized sinuses are unremarkable. No fluid levels. Mastoid air cells: Visualized mastoid air cells are well aerated. Soft tissues: Unremarkable. IMPRESSION: 1. No acute intracranial findings. 2. Senescent changes.
--- NOTE | 2020-10-03 21:23 | ECG_ITS ---
APPROVED REPORT Exam: Resting ECG HR:74 bpm ECG Measurements Heart Rate 74 AXES NH 142 P 71 QRSd 98 QRS 83 QT 410 T 58 QTc 455 Conclusion Normal sinus rhythm ST abnormality, possible digitalis effect Abnormal ECG Electronically signed by : Morgan Montalvo, 10/04/2020 17:44:24
[2020-10-03 21:32] LABS: Basophils # 0.1 K/mm3 (0-0.2); Basophils % 1.1 % (0.1-2.0); Eosinophils # 0.2 K/mm3 (0.0-0.4); Eosinophils % 2.9 % (0.1-12.0); Hematocrit 47.8 % (37.0-47.0); Hemoglobin 15.1 g/dL (12.2-16.2); Lymphocytes # 2.5 K/mm3 (0.7-4.5); Lymphocytes % 38.7 % (10-50); Mean Corpuscular HGB Conc 31.7 g/dL (31.8-35.4); Mean Corpuscular Hemoglobin 28.6 pg (27.0-31.2); Mean Corpuscular Volume 90.2 fl (81-99); Mean Platelet Volume 7.9 fl (7.4-10.4); Monocytes # 0.4 K/mm3 (0.1-1.0); Monocytes % 6.1 % (1.7-9.3); Neutrophils # 3.3 K/mm3 (1.8-7.8); Neutrophils % 51.1 % (37.0-80.0); Platelet Count 263 K/mm3 (142-424); Red Cell Distribution Width 13.6 % (11.5-17.5); White Blood Count 6.4 K/mm3 (4.8-10.8)
[2020-10-03 21:35] LABS: Alanine Aminotransferase 14 U/L (12-78); Albumin Level 4.5 g/dl (3.5-5.0); Albumin/Globulin Ratio 1.3 (1.1-1.8); Alkaline Phosphatase 81 U/L (38-126); Anion Gap 9.4 mEq/L (5-15); Aspartate Amino Transferase 25 U/L (14-36); Bilirubin,Total 0.5 mg/dl (0.2-1.3); Blood Urea Nitrogen 18 mg/dl (7-17); Calcium 9.9 mg/dl (8.4-10.2); Carbon Dioxide 33 mmol/L (22.0-30.0); Chloride 101 mmol/L (98-107); Creatinine Clearance Estimated 48 mL/min (50-200); Estimated Glomerular Filt Rate 71 ml/min (>60); GFR (African American) 85 ML/MIN (>60); Globulin 3.5 g/dL (1.3-3.2); Glucose 216 mg/dl (74-100); Potassium 4.4 mmoL/L (3.5-5.1); Sodium 139 mmol/L (136-145)
[2020-10-03 21:40] LABS: C-Reactive Protein 1.8 mg/L (0-4)
[2020-10-03 21:52] LABS: Troponin I < 0.01 ng/ml (0.00-0.034)
[2020-10-03 21:54] LABS: Procalcitonin 0.031 ng/mL (0.0-2.0)
--- NOTE | 2020-10-03 22:04 | HMH.EDNEU ---
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 The time I documented below is in addition to time spent performing reported procedures but includes the following listed in this critical care notation. Medical Decision Making - Medical Records Medical records reviewed: Yes: I reviewed the patient's medical records. - Suman Inquiry Pt receiving controlled substance: No Vital Signs: 10/03/20 21:05 10/03/20 21:30 10/03/20 22:30 Temperature 98.2 F Temperature Source Oral Pulse Rate 67 76 Pulse Rate [Right] 77 Respiratory Rate 16 15 15 Blood Pressure 219/97 H 219/97 H Blood Pressure [Right Arm] 218/98 H Blood Pressure Mean Blood Pressure Mean [Right Arm] 138 Blood Pressure Source Automatic Cuff Automatic Cuff Blood Pressure Source [Right Arm] Automatic Cuff Blood Pressure Position Supine Supine Blood Pressure Position [Right Arm] Supine 02 Sat by Pulse Oximetry 97 95 97 Oxygen Delivery Method Room Air Room Air Room Air 10/03/20 22:39 10/03/20 22:42 10/03/20 22:45 Temperature Temperature Source Pulse Rate 72 74 Pulse Rate [Right] Respiratory Rate 17 17 19 Blood Pressure 210/92 H Blood Pressure [Right Arm] Blood Pressure Mean Blood Pressure Mean [Right Arm] Blood Pressure Source Manual Cuff/ Auscultation Blood Pressure Source [Right Arm] Blood Pressure Position Supine Blood Pressure Position [Right Arm] 02 Sat by Pulse Oximetry 96 96 Oxygen Delivery Method Room Air 10/03/20 23:09 10/03/20 23:10 10/03/20 23:15 Temperature Temperature Source Pulse Rate 77 75 72 Pulse Rate [Right] Respiratory Rate Blood Pressure 204/86 H Blood Pressure [Right Arm] Blood Pressure Mean 127 Blood Pressure Mean [Right Arm] Blood Pressure Source Blood Pressure Source [Right Arm] Blood Pressure Position Blood Pressure Position [Right Arm] 02 Sat by Pulse Oximetry 95 95 94 L Oxygen Delivery Method 10/03/20 23:26 10/03/20 23:30 10/03/20 23:31 Temperature Temperature Source Pulse Rate 75 76 75 Pulse Rate [Right] Respiratory Rate 21 23 14 Blood Pressure 210/87 H 187/92 H Blood Pressure [Right Arm] Blood Pressure Mean 128 123 Blood Pressure Mean [Right Arm] Blood Pressure Source Blood Pressure Source [Right Arm] Blood Pressure Position Blood Pressure Position [Right Arm] 02 Sat by Pulse Oximetry 95 97 97 Oxygen Delivery Method - Lab Data Lab results reviewed: Yes: I reviewed the patient's lab results. Lab Results 10/03/20 20:45: WBC 6.4, RBC 5.30, Hgb 15.1, Hct 47.8 H, MCV 90.2, MCH 28.6, MCHC 31.7 L, RDW 13.6, Plt Count 263, MPV 7.9, Neut % (Auto) 51.1, Lymph % (Auto) 38.7, [place] % (Auto) 6.1, Eos % (Auto) 2.9, Baso % (Auto) 1.1, Neut # (Auto) 3.3, Lymph # (Auto) 2.5, [place] # (Auto) 0.4, Eos # (Auto) 0.2, Baso # (Auto) 0.1, ESR 8 10/03/20 20:45: Sodium 139, Potassium 4.4, Chloride 101, Carbon Dioxide 33
[2020-10-03 22:09] LABS: Erythrocyte Sedimentation Rate 8 mm/hr (0-30)
--- NOTE | 2020-10-03 23:46 | PC.NURSE ---
Dr Rankin speaking with Dr Montalvo
[2020-10-03 23:48] LABS: Activated Partial Thrombo Time 26.5 seconds (22.8-30.6); INR 0.91 (0.9-1.1); Prothrombin Time 10.8 seconds (10.1-12.5)
[2020-10-04] VITALS (8 sets, daily range): BP systolic 147–187; BP diastolic 66–109; PULSE 68–91; RESP 16–26; TEMP 36.6–36.8; O2SAT 94–98; BMI 22.1
--- NOTE | 2020-10-04 00:37 | PC.NURSE ---
patient up to floor via wheelchair.
[2020-10-04 00:53] LABS: Hemoglobin A1C 8.2 % (4.0-6.0)
[2020-10-04 01:41] LABS: Troponin I < 0.01 ng/ml (0.00-0.034)
--- NOTE | 2020-10-04 04:19 | PC.NURSE ---
shift summary pts lung sounds are clear with sats maintained 95% or above on room air, with a rate ranging from 18-26. pt is alert and oriented X4. pt does have weaknes on the left juan david of her body but is still ambulatory. pt has had no complaints. pt katt any pain, nausea, vomiting , or diarrhea.
[2020-10-04 04:53] LABS: Troponin I < 0.01 ng/ml (0.00-0.034)
[2020-10-04 05:38] LABS: POC Glucose,Bedside 221 (70-110)
[2020-10-04 05:58] LABS: Basophils # 0.1 K/mm3 (0-0.2); Basophils % 0.7 % (0.1-2.0); Eosinophils # 0.2 K/mm3 (0.0-0.4); Eosinophils % 2.1 % (0.1-12.0); Hematocrit 45.1 % (37.0-47.0); Lymphocytes # 2.3 K/mm3 (0.7-4.5); Lymphocytes % 25.7 % (10-50); Mean Corpuscular Volume 90.3 fl (81-99); Mean Platelet Volume 7.7 fl (7.4-10.4); Monocytes # 0.5 K/mm3 (0.1-1.0); Monocytes % 6.1 % (1.7-9.3); Neutrophils # 5.8 K/mm3 (1.8-7.8); Neutrophils % 65.3 % (37.0-80.0); Platelet Count 244 K/mm3 (142-424); Red Blood Count 4.99 M/mm3 (4.20-5.40); Red Cell Distribution Width 13.6 % (11.5-17.5); White Blood Count 8.9 K/mm3 (4.8-10.8)
[2020-10-04 06:09] LABS: Anion Gap 9.8 mEq/L (5-15); Blood Urea Nitrogen 14 mg/dl (7-17); Carbon Dioxide 22 mmol/L (22.0-30.0); Chloride 109 mmol/L (98-107); Chol/HDL Ratio 4.8 (1-3.5); Cholesterol 196 mg/dl (140-200); Creatinine Clearance Estimated 47 mL/min (50-200); Estimated Glomerular Filt Rate 98 ml/min (>60); GFR (African American) 119 ML/MIN (>60); Glucose 235 mg/dl (74-100); HDL Cholesterol 41 mg/dl (40-60); Magnesium 1.8 mg/dl (1.6-2.3); Potassium 3.8 mmoL/L (3.5-5.1); Sodium 137 mmol/L (136-145); Triglycerides 65 mg/dl (30-150); VLDL Cholesterol 13 mg/dL (0-40)
[2020-10-04 06:15] LABS: Calcium 8.9 mg/dl (8.4-10.2)
--- NOTE | 2020-10-04 07:28 | HMH.HP ---
*Admission Date: 10/04/20 *Chief complaint: Left arm and leg weakness *History of present illness: 70-year-old female with vascular disease presented to the emergency department with left arm and leg weakness. Patient reports Sunday morning she awoke with left arm and leg weakness as well as numbness in the extremities. Patient thought she would be able to walk it off during the day. By Sunday evening when symptoms had not improved patient presented to the emergency department. In the ER patient was found to have severe hypertension. Blood pressure was brought down in the ER. Despite patient's left arm and leg weakness she was able to remain ambulatory. She also reports associated symptoms of some difficulty swallowing. She denies visual disturbance or speech disturbance. Patient takes an aspirin daily and previously was on Plavix as well for her peripheral arterial disease but made the decision to stop taking this medicine because of the bruising that was occurring with light touch. [facility] History Medical History: Reports:: Chronic Obstructive Pulmonary Disease (COPD), Diabetes Mellitus Type 1, Gastroesophageal Reflux Disease(GERD), Hyperlipidemia, Hypertension, Lung Disease, Peripheral Artery Disease Denies:: Cancer, Diabetes Mellitus Type 2, Internal Pacemaker, MRSA, Seizures *Have you ever received a pneumonia vaccine?: Yes *Have you received a flu vaccine this season?: Yes Other Surgeries: Yes: Cancer Surgery, Colonoscopy, EGD, Hysterectomy-Total, Other. No: Pacemaker Amputation: No Fractures: No - *Social History Last grade of school completed: Some college Smoking Status: Current every day smoker Tobacco Type: cigarettes # Packs/Day (cigarettes): 1 Alcohol Intake: never Alcohol Intake Frequency:: a few times a month Substance Use Type: denies use *Occupational Status:: retired Housing: house Household Members: spouse *Travel in the last 8 weeks: None Family Hx:: No significant family history Review of Systems - Constitutional Denies anorexia, Denies body ache(s), Denies chills, Denies lack of energy - Eyes Denies blind spots, Denies blurry vision - ENT Reports difficulty swallowing, Denies abnormal hearing - *Cardiovascular Denies chest pain - *Respiratory Denies chest congestion, Denies cough - *Gastrointestinal Denies abdominal pain, Denies belching, Denies loose stools - *Genitourinary Denies painful urination - *Musculoskeletal Reports abnormal walking, Denies joint pain - *Neurologic Reports localized weakness, Reports tingling/numbness/burning sensations (Left arm and leg), Denies abnormal speech, Denies behavioral changes, Denies confusion, Denies headache(s), Denies lack of coordination, Denies loss of vision, Denies weakness - Psychiatric Denies abnormal sleep pattern, Denies change in appetite - Hematologic/Lymphatic Reports easy bleeding (While taking Plavix) Meds Home Medications Medication Instructions Recorded Confirmed Type Aspirin [Low Dose Aspirin EC] 81 mg PO DAILY 10/03/20 10/04/20 History Glimepiride 1 mg PO DAILY 10/03/20 10/04/20 History Allergies Allergy/AdvReac Type Severity Reaction Status Date / Time Penicillins [PENICILLINS] Allergy Mild rash Verified 10/04/20 00:54 cephalexin [CEPHALEXIN] Allergy Unknown Verified 10/04/20 00:54 Cephalosporins Allergy Unknown Verified 10/04/20 00:54 [CEPHALOSPORINS] nitrofurantoin Allergy Unknown Verified 10/04/20 00:54 [NITROFURANTOIN] Sulfa (Sulfonamide Allergy Unknown Verified 10/04/20 00:54 Antibiotics) [SULFA (SULFONAMIDE ANTIBIOTICS)] Exam Vital signs and Labs for Last 24 Hours: Temp Pulse Resp BP Pulse Ox 97.9 F 83 24 155/66 H 94 L 10/04/20 04:00 10/04/20 04:00 10/04/20 04:00 10/04/20 04:00 10/04/20 04:00 Laboratory Results - last 24 hr 10/03/20 20:45: WBC 6.4, RBC 5.30, Hgb 15.1, Hct 47.8 H, MCV 90.2, MCH 28.6, MCHC 31.7 L, RDW 13.6, Plt Count 263, MPV 7.9, Marlo
--- NOTE | 2020-10-04 07:44 | MR_ITS ---
PROCEDURE: MR HEAD/BRAIN WO CON CLINICAL INDICATION: CVA Left-sided weakness and numbness COMPARISON: CT CT HEAD/BRAIN WO CON from 10/03/2020 TECHNIQUE: Routine multiplanar multi echo sequences are performed without gadolinium enhancement. FINDINGS: There is a 1.4 by 0.6 cm area restricted diffusion in the posterior aspect of the right centrum semiovale and medial right parietal lobe. This is consistent with an area of acute infarction. No midline shift or mass effect. No acute hemorrhage. No midline shift apparent. The cerebellopontine angles have an unremarkable appearance. The pituitary, optic chiasm, corpus callosum, and craniocervical junction have an unremarkable appearance. There is diffuse generalized atrophy with scattered periventricular and subcortical T2 white matter hyperintensities consistent with ischemic gliotic change from microvascular disease. Small area of cystic encephalomalacia is present in the right parietal lobe measuring 7 by 4 mm. An additional cystic area of encephalomalacia is present in the right frontal lobe at 5 mm. No mastoid effusion or sinus air-fluid level. IMPRESSION: Small area of acute infarction in the right centrum semiovale/medial aspect of the right parietal lobe Atrophy with chronic ischemic changes. Dictated by: Berny Ann MD 10/04/2020 12:58 Berny Ann MD in [place] 10/04/2020 12:58
--- NOTE | 2020-10-04 08:00 | CA_ITS ---
APPROVED REPORT EXAM: Comprehensive 2D, Doppler, and color-flow Echocardiogram Studio Receptionist: Beth Booth, MARILEE, RVS Ht: 5 ft 4 in Wt: 132lbs BSA: 1.64 HR: 73 bpm BP: 187/92 mmHg Rhythm: Atrial Fibrillation Indications: CVA, uncontrolled HTN, HLD, SOB, Smoker 2D Dimensions IVSd 0.92 cm LVEF (Visual) 61.80 % PWd 0.93 cm LA Volume 70.20 mL LVDd 4.11 cm LA Volume Index 42.80 mL/m2 (M/F) 16-34 LVDs 2.76 cm Aortic Root 2.62 cm Left Atrium 4.37 cm LVOT 1.79 cm (M/F) 1.5-2.5 M-Mode Dimensions EPSs 0.29 cm TAPSE 2.58 (<1.7) LV Diastology E Decel Time 190.00 (160-240 msec) E/A Ratio 1.42 MED E' 8.20 (< 7 cm/sec) MED A' 7.30 cm/s E'/MED E' Ratio 12.43 (>14) LAT E' 8.20 (<10 cm/sec) LAT A' 6.20 cm/s E/LAT E' Ratio 12.43 (>14) Aortic Valve AoV Peak Zach. 173.00 (50-130 cm/s) AO Peak GR. 12.00 mmHg AO Mean GR. 6.90 (<5 mmHg) AO VTI 39.13 (18-25 cm) Mitral Valve MV A Velocity 72.00 (40-130 cm/s) E/A Ratio 1.42 MV Decel. Time 190.00 (160-240 ms) Pulmonary Valve PV Peak Velocity 87.00 (50-150 cm/s) Tricuspid Valve TR P. Velocity 355.00 cm/s RAP Estimate 10.00 mmHg RVSP 60.30 mmHg Left Ventricle Left atrium is moderately enlarged, left ventricle is normal size, mild concentric left ventricular hypertrophy, visually estimated ejection fraction 55% with no regional wall motion abnormality, diastolic parameters are inconclusive. Right Ventricle Right atrium and right ventricle are mildly enlarged with normal contractility. Aortic Valve Aortic valve is minimally thickened and fibrosed, there is no aortic stenosis or aortic insufficiency. Mitral Valve Mitral valve is minimally thickened, there is mild mitral regurgitation. Tricuspid Valve Tricuspid grossly normal, there is mild tricuspid regurgitation, calculated right ventricular systolic pressure is 55mmHg. Pulmonic Valve Pulmonic valve is poorly visualized. Great Vessels Aortic root is normal size. Pericardium No significant pericardial effusion noted. Conclusion 1. Biatrial alignment, normal left ventricular size, mild concentric left ventricular hypertrophy, visually estimated ejection fraction 55% with no regional wall motion abnormality, diastolic parameters are inconclusive. 2. Mildly enlarged right ventricle with normal contractility. 3. Mild mitral and tricuspid regurgitation, calculated right ventricular systolic pressure 55 mmHg. 4. No significant pericardial effusion noted. Electronically signed by : Teodoro Braden, 10/04/2020 20:04:28
--- NOTE | 2020-10-04 08:00 | CA_ITS ---
APPROVED REPORT Court Monitor: CHIDI Laterality: Bilateral Study Quality: Adequate Indications: cva Risk Factors Hypertension: Doppler Spectral Velocity Analysis ECA (R) 164.00/10.00 cm/s ECA (L) 163.60/12.80 cm/s dICA (R) 77.00/19.00 cm/s dICA (L) 151.70/20.00 cm/s Abigail (R) 113.00/24.00 cm/s Abigail (L) 143.40/23.50 cm/s pICA (R) 104.00/19.00 cm/s pICA (L) 216.30/55.30 cm/s dCCA (R) 95.00/14.00 cm/s dCCA (L) 95.20/21.40 cm/s pCCA (R) 89.00/16.00 cm/s pCCA (L) 126.20/25.70 cm/s ICA/CCA 1.26 Vert (L) 123.50/24.70 cm/s ICA/CCA 2.27 Findings Duplex evaluation demonstrates antegrade flow of the bilateral Vertebral Arteries. Duplex evaluation demonstrates stenosis of the right proximal internal carotid artery in the range of 20-49% with PSV <140 cm/sec, EDV <100 cm/sec, and IC/CC Ratio <4.0. Duplex evaluation demonstrates stenosis of the left proximal internal carotid artery in the range of 50-69% with PSV =140 cm/sec, EDV <100 cm/sec, and IC/CC Ratio <4.0. Due to heavy acoustic shadowing in bilateral carotid bulbs , higher percent stenosis cannot be ruled out. Conclusion Duplex evaluation demonstrates antegrade flow of the bilateral Vertebral Arteries. Duplex evaluation demonstrates stenosis of the right proximal internal carotid artery in the range of 20-49% with PSV <140 cm/sec, EDV <100 cm/sec, and IC/CC Ratio <4.0. Duplex evaluation demonstrates stenosis of the left proximal internal carotid artery in the range of 50-69% with PSV =140 cm/sec, EDV <100 cm/sec, and IC/CC Ratio <4.0. Due to heavy acoustic shadowing in bilateral carotid bulbs , higher percent stenosis cannot be ruled out. Electronically signed by : Berny Ann MD 10/04/2020 17:40:04
--- NOTE | 2020-10-04 09:00 | HMH.SLDYSPHA ---
Speech & Language Evaluation Speech/Language Dysphagia Evaluation Start: 10/04/20 08:57 Freq: ONCE Status: Active Protocol: Document 10/04/20 08:57 ONEIDA (Rec: 10/04/20 09:00 ONEIDA [id number]) Dysphagia Assess/Goals/Plan Assessment Date of Evaluation: 10/04/20 Evaluation Type Initial Certification Assessment/Problems CVA Does Patient Qualify for Service No Qualify/Failure Comment Patient showed no overt s/s of dysphagia Recommendations PHYSICIAN CERTIFICATION: The specified therapy services are required, authorized, and reviewed every 30 days. Diet Recommendations Normal Liquid Type Recommendations Normal/Thin Plan Pt/Guardian verbally ack understanding Yes of dx/prognosis/goals G -code Required No Speech & Language HPI History Present Illness Rehab Services Assessed Speech therapy Is this evaluation r/t stroke? Yes Language Primary Language Lao General Information General Current Food Consistancy NPO Dentition Good Dentition Oxygen Status Room Air Facial Symmetry Symmetrical Patient Orientation Person,Place,Time,Situation Ability to Follow Directions Excellent Communication Ability No Impairment Dysphagia:Food Presentation Evaluation Food Type Pureed,Mechanical Soft,Regular ,Liquid,Pudding Dysphagia Evaluation Summary Ms. Malone was given the following consistencies: thins via open cup and straw, pudding, pureed, mechanical soft, and regular. No overt signs and symptoms of dysphagia were noted. At this time, it is recommended Ms. Malone be placed on regular diet with thin liquids. Pills ok for whole intake. Straws ok . Stroke Dysphagia Assessment PHYSICIAN CERTIFICATION: I certify the specified therapy services for Sandi Malone are required, authorized, and reviewed every 30 days.
--- NOTE | 2020-10-04 09:19 | HMH.PHAVTE ---
[facility] Pharmacy VTE Monitoring - Patient Demographics Admission date: 10/03/20 Report Date: 10/04/20 Time: 09:19 Allergies/Adverse Reactions: Patient Allergies Penicillins [PENICILLINS] Allergy (Mild, Verified 10/04/20 00:54) rash cephalexin [CEPHALEXIN] Allergy (Unknown, Verified 10/04/20 00:54) Cephalosporins [CEPHALOSPORINS] Allergy (Unknown, Verified 10/04/20 00:54) nitrofurantoin [NITROFURANTOIN] Allergy (Unknown, Verified 10/04/20 00:54) Sulfa (Sulfonamide Antibiotics) [SULFA (SULFONAMIDE ANTIBIOTICS)] Allergy (Unknown, Verified 10/04/20 00:54) Height: 1.63 m Weight: 58.769 kg Patient Problems: Current Active Problems Cerebrovascular accident (Acute) Pulmonary HTN (Chronic) Tobacco dependence (Chronic) PAD (peripheral artery disease) (Chronic) COPD (chronic obstructive pulmonary disease) (Chronic) Diabetes (Chronic) - VTE Risk Labs: VTE Related Lab Results Hgb 14.0 g/dL (12.2-16.2) 10/04/20 05:30 Hct 45.1 % (37.0-47.0) 10/04/20 05:30 Plt Count 244 K/mm3 (142-424) 10/04/20 05:30 PT 10.8 seconds (10.1-12.5) 10/03/20 20:45 INR 0.91 (0.9-1.1) 10/03/20 20:45 APTT 26.5 seconds (22.8-30.6) 10/03/20 20:45 BUN 14 mg/dl (7-17) 10/04/20 05:30 Creatinine 0.60 mg/dl (0.52-1.04) D 10/04/20 05:30 Estimated Creat Clear 47 mL/min (50-200) 10/04/20 05:30 VTE Score: 6 VTE Risk Level: Moderate Risk - Prophylaxis VTE Prophylaxis Ordered?: Yes Types of VTE Prophylaxis: TEDS Knee High Location of Applied Device: Bilateral Lower Extremeties
--- NOTE | 2020-10-04 09:40 | HMH.PHAINT ---
MEDICATION RECONCILIATION COMPLETED ON PATIENT USING EXTERNAL FILL HISTORY FROM PHARMACY AND PATIENT INTERVIEW. -SHANNON GARDUNO, ROSELINED
--- NOTE | 2020-10-04 10:01 | HMH.OTEV ---
OT Inpatient Evaluation Rehab OT IP Evaluation Start: 10/04/20 06:56 Freq: ONCE Status: Complete Protocol: Document 10/04/20 09:55 [facility] (Rec: 10/04/20 10:01 [facility] [id number]) Rehab OT IP Assessment Subjective History Pt oriented x 3 on arrival. Pt agreeable to engage in therapy evaluation. Pt admitted via ED on 10/03/20 due to having numbness in L arm and leg. Pt has a past medical history of CA, COPD, DM type 2, GERD, Hyperlipidemia, HTN, and Lung disease. Pt claims prior to CVA she lived with her . Pt claims she was completely independent with all ADLs and IADLS. Pt did not require any AE and she still drove. Subjective I was completely fine until Sunday. Objective Patient Orientation Person,Place,Birthday Upper Extremity Gross ROM Mod Limitation 50% Shoulder ROM Limitations Muscle Weakness Elbow ROM Limitations Muscle Weakness Wrist Limitations of Range of Motion Muscle Weakness Bed Mobility bed mobility-scooting,bed mobility - supine/sit,bed mobility - rolling Assist Level Contact Guard/Hand Hold Transfer Training Sit/Stand Transfer Assist Level Minimal x 1 (25% assist) Rehab OT IP prob,goals,plan Problems Date of Evaluation: 10/04/20 OT IP Problems Bed Mobility,Transfers,Gait, Balance,Self care,Safety Rehab Potential Rehab Potential Good Plan OT intervention Plan Bed Mobility,Transfers,Gait, Balance,Self care,Safety, Therapeutic Exercise OT Plan Frequency BID Duration LOS Discharge Goals Bed Mobility Ability Standby Assistance Sit to Stand Chair Transfer Ability Supervision/Stand by Chair Transfer Ability Supervision/Stand by Chair Transfer Technique Sit to/from Ambulatory Feeding Ability Independent Lower Body Dressing Ability Standby Assistance Upper Body Dressing Ability Standby Assistance Bathing Ability Standby Assistance Performing Toilet Hygiene Ability Standby Assistance Overall Commode/Toilet Transfer Ability Standby Assistance Commode/Toilet Transfer Technique Sit
[2020-10-04 12:14] LABS: POC Glucose,Bedside 162 (70-110)
--- NOTE | 2020-10-04 16:25 | PC.NURSE ---
Pt has rested in room this shift. she has been awake most of the day. she has been up to the chair off and on. pt continues to have weakness in her left arm. left leg does not seem to be affected. lung sounds are clear, bowel sounds are active in all quads. nad noted. pt has had PT/OT/ST assessments today.
[2020-10-04 16:27] LABS: POC Glucose,Bedside 146 (70-110)
[2020-10-04 20:36] LABS: POC Glucose,Bedside 194 (70-110)
[2020-10-05] VITALS: BP 149/74; PULSE 91; PULSE 97; RESP 27; TEMP 37.1; O2SAT 91
--- NOTE | 2020-10-05 01:19 | PC.NURSE ---
patient has been very unsteady with difficulty getting left leg to move when ambulating to bathroom. on initial and current assessment pedal pushed strong and equal, left upper extremity weaker than right. no facial droop, impaired speech or disorientation present
[2020-10-05 04:00] VITALS: BP 138/75; PULSE 87; PULSE 90; RESP 26; TEMP 36.8; O2SAT 94
--- NOTE | 2020-10-05 04:48 | PC.NURSE ---
gait much better at this time, left lower extremity moving without difficulty
[2020-10-05 05:31] LABS: POC Glucose,Bedside 248 (70-110)
[2020-10-05 05:58] VITALS: BMI 21.9
--- NOTE | 2020-10-05 06:15 | PC.NURSE ---
new iv started in right wrist, blood obtained and sent to lab for possible am lab.
--- NOTE | 2020-10-05 06:37 | PC.NURSE ---
patient much more cordinated with increased strength in left lower extremity again. able to ambulate to restroom with standby assist.
--- NOTE | 2020-10-05 07:25 | HMH.ACPN2 ---
Internal Medicine - PN: Subj *Date: 10/05/20 *Time: 07:25 Interval history: Patient reports no complaints and feels like her left arm and leg are stronger today than they were yesterday. Blood pressures have been better controlled. MRI of the brain confirmed a small area of infarct in the right centrum semiovale/medial aspect of the right parietal lobe. Patient underwent PT eval. She is able to ambulate with standby assist but voices concern about a fall Exam Vital signs and Labs for Last 24 Hours: Temp Pulse Resp BP Pulse Ox 98.3 F 87 26 H 138/75 94 L 10/05/20 04:00 10/05/20 04:00 10/05/20 04:00 10/05/20 04:00 10/05/20 04:00 Laboratory Results - last 24 hr 10/04/20 11:59: POC Glucose 162 H 10/04/20 16:20: POC Glucose 146 H 10/04/20 20:23: POC Glucose 194 H 10/05/20 05:22: POC Glucose 248 H I & O for Last 24 hours: Intake & Output 10/02/20 10/03/20 10/04/20 10/05/20 11:59 11:59 11:59 11:59 Intake Total 1000 / 1000 1530 / 1530 Balance 1000 / 1000 1530 / 1530 Weight 130 lb 1.164 oz 128 lb 9 oz Narrative: Patient appears comfortable. Speech is fluent and clear. There is no facial asymmetry. Left arm weakness persists. Patient able to rise to a standing position from the bed and ambulate with standby assist Assessment and Plan (1) Cerebrovascular accident Status: Acute Qualifiers: CVA mechanism: stenosis Precerebral and cerebral artery: carotid artery Laterality of affected vessel: right Qualified Code(s): I63.231 - Cerebral infarction due to unspecified occlusion or stenosis of right carotid arteries Category: Medical Code(s): I63.9 - Cerebral infarction, unspecified (2) Hypertensive emergency Status: Resolved Category: Medical Code(s): I16.1 - Hypertensive emergency (3) COPD (chronic obstructive pulmonary disease) Status: Chronic Qualifiers: COPD type: unspecified COPD Qualified Code(s): J44.9 - Chronic obstructive pulmonary disease, unspecified Category: Medical Code(s): J44.9 - Chronic obstructive pulmonary disease, unspecified (4) Diabetes Status: Chronic Qualifiers: Diabetes mellitus type: type 2 Diabetes mellitus long term care social worker insulin use: unspecified long term care social worker insulin use status Diabetes mellitus complication status: with other specified complication Qualified Code(s): E11.69 - Type 2 diabetes mellitus with other specified complication Category: Medical Code(s): E11.9 - Type 2 diabetes mellitus without complications (5) Tobacco dependence Status: Chronic Category: Medical Code(s): F17.200 - Nicotine dependence, unspecified, uncomplicated (6) PAD (peripheral artery disease) Status: Chronic Category: Medical Code(s): I73.9 - Peripheral vascular disease, unspecified (7) Pulmonary HTN Status: Chronic Category: Medical Code(s): I27.20 - Pulmonary hypertension, unspecified - Assessment and plan all Dx Assessment and Plan for all problems:: 1. Patient will be discharged home today we will continue PT as an outpatient and [facility] 2. Begin Plavix daily and she may discontinue her aspirin 3. Patient will start low-dose Crestor 4. Adjustments to her diabetic regimen will be made in follow-up
--- NOTE | 2020-10-05 07:28 | HMH.DCSUM ---
General - General Admission date:: 10/04/20 Discharge date: 10/05/20 HPI HPI: 70-year-old female with vascular disease presented to the emergency department with left arm and leg weakness. Patient reports Sunday morning she awoke with left arm and leg weakness as well as numbness in the extremities. Patient thought she would be able to walk it off during the day. By Sunday evening when symptoms had not improved patient presented to the emergency department. In the ER patient was found to have severe hypertension. Blood pressure was brought down in the ER. Despite patient's left arm and leg weakness she was able to remain ambulatory. She also reports associated symptoms of some difficulty swallowing. She denies visual disturbance or speech disturbance. Patient takes an aspirin daily and previously was on Plavix as well for her peripheral arterial disease but made the decision to stop taking this medicine because of the bruising that was occurring with light touch. Hospital Course Hospital Course: Patient was admitted with diagnosis of CVA with left hemiparesis and hypertensive urgency. Blood pressure came down nicely in response to hydralazine and lisinopril given in the emergency department and gradually trended down returning to near normal levels within [address] until discharge. Patient's left arm and leg weakness persisted throughout hospitalization but did improve. PT, OT, speech therapy were all consulted as part of stroke evaluation. Patient was able to ambulate independently but did display some unsteadiness on her feet and will be prescribed a walker. Work-up which included a CTA of the neck showed less than 50% stenosis of the right internal carotid artery and less than 75% stenosis of the left internal carotid artery. Patient was started on Plavix. At discharge she will also be started on Crestor 5 mg. Patient has not responded well to statins in the past. Patient was advised to stop smoking. She plans on attempting this by using CBD Gummies Adjustments to her diabetic regimen will be made in her outpatient follow-up visit. Patient will continue PT [facility] at [facility] Patient was discharged home in stable condition and having improved Objective Vital signs: Temp Pulse Resp BP Pulse Ox 98.3 F 87 26 H 138/75 94 L 10/05/20 04:00 10/05/20 04:00 10/05/20 04:00 10/05/20 04:00 10/05/20 04:00 no acute distress - *Routine Neck Exam Present: supple - *Routine Respiratory Exam Present: CTA bilaterally - *Routine Cardiovascular Exam Present: RRR - *Routine Abdominal Exam Present: soft, normoactive bowel sounds. Absent: tenderness - *Routine Extremities Exam Absent: cyanosis, clubbing, edema - *Routine Neurological Exam Alert and oriented x3. No facial asymmetry. 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 4/5 strength in the left leg. Patient able to ambulate independently with standby assist but displays unsteadiness especially with turns Results Labs on day of discharge: Labs from last 24 hours 10/05/20 10/04/20 10/04/20 05:22 20:23 16:20 POC Glucose 248 H 194 H 146 H 10/04/20 11:59 POC Glucose 162 H DS: Diagnosis - Discharge Diagnosis (1) Cerebrovascular accident Status: Acute (2) Hypertensive emergency Status: Resolved (3) COPD (chronic obstructive pulmonary disease) Status: Chronic (4) Diabetes Status: Chronic (5) Tobacco dependence Status: Chronic (6) PAD (peripheral artery disease) Status: Chronic (7) Pulmonary HTN Status: Chronic Discharge Plan - Patient Discharge Instructions ACTIVITY: Continue current activity DIET: continue same diet Patient Instructions: Chronic Obstructive Pulmonary Disease, DI for Stroke-Ischemic, DI for High Blood Pressure - Follow up Plan Follow up with: Morgan Johnson MD [Primary Care P
[2020-10-05 07:46] VITALS: BP 137/62; PULSE 82; RESP 18; TEMP 36.7; O2SAT 94
--- NOTE | 2020-10-05 09:46 | PC.NURSE ---
pt will benefit from a walker as her gait is unsteady secondary to a stroke.
== END 2020-10-05 10:31 | disposition home or self-care (01) | DRG 65 ==
LOC: ER 22:19 → 2ND 10-04 00:13
PROVIDERS: Admitting Provider Internal Medicine Adolescent Medicine; Emergency Provider Emergency Medicine; PCP Family Medicine; Visit Provider Family Medicine
DX: I63.231 Cerebral infarction due to unspecified occlusion or stenosis of right carotid arteries (principal); I16.1 Hypertensive emergency; G81.94 Hemiplegia, unspecified affecting left nondominant side; I10 Essential (primary) hypertension; I27.20 Pulmonary hypertension, unspecified; F17.210 Nicotine dependence, cigarettes, uncomplicated; J44.9 Chronic obstructive pulmonary disease, unspecified; R29.701 NIHSS score 1; Z87.891 Personal history of nicotine dependence; K21.9 Gastro-esophageal reflux disease without esophagitis; E11.51 Type 2 diabetes mellitus with diabetic peripheral angiopathy without gangrene; E78.5 Hyperlipidemia, unspecified; Z20.822 Contact with and (suspected) exposure to COVID-19; Z79.84 Long term (current) use of oral hypoglycemic drugs; Z71.6 Tobacco abuse counseling; Z79.4 Long term (current) use of insulin; Z88.0 Allergy status to penicillin; Z88.2 Allergy status to sulfonamides; Z88.1 Allergy status to other antibiotic agents; Z79.82 Long term (current) use of aspirin
CPT/HCPCS: 70450; 70496; 70498; 70551; 71045; 80048; 80053; 80061; 82962; 83036; 83735; 84145; 84484; 85025; 85610; 85651; 85730; 86140; 92610; 93005; 93306; 93880; 96365; 96375; 97116; 97161; 97166; 97530; 99284; Q9967; U0003

== ENCOUNTER 2020-10-27 13:00 | Outpatient (RCR) | payer MEDICARE, OTHER, SELFPAY | END 2020-10-27 13:05 | disposition home or self-care (01) | LOC: PT 13:00 | PROVIDERS: PCP Family Medicine; Visit Provider Family Medicine | DX: I63.231 Cerebral infarction due to unspecified occlusion or stenosis of right carotid arteries (principal) | CPT/HCPCS: 97110; 97112; 97163 ==

== ENCOUNTER 2020-10-27 14:00 | Outpatient (RCR) | payer MEDICARE, OTHER, SELFPAY | END 2020-10-27 14:05 | disposition home or self-care (01) | LOC: OT 14:00 | PROVIDERS: PCP Family Medicine; Visit Provider Family Medicine | DX: I63.231 Cerebral infarction due to unspecified occlusion or stenosis of right carotid arteries (principal) | CPT/HCPCS: 97010; 97110; 97140; 97165; 97530 ==

== ENCOUNTER → 2022-02-08 14:34 | Outpatient (CLI) | payer MEDICARE, OTHER, SELFPAY ==
--- NOTE | 2022-02-08 14:37 | CT_ITS ---
FINAL REPORT TECHNIQUE: Axial images were obtained from the lung apex to the mid abdomen by computed tomography. This study was performed with techniques to keep radiation doses as low as reasonably achievable (ALARA). Individualized dose reduction techniques using automated exposure control or adjustment of mA and/or kV according to the patient's size were employed. CLINICAL HISTORY: H/O NICOTINE DEPENDENCE with 40 pack-year history. FINDINGS: CHEST CT LOW DOSE CTDI vol (mGy): 2.90 DLP (mGy-cm): 96.38 There is an enlarged precarinal lymph node measuring 21 mm. The heart is normal in size. There is no pleural or pericardial effusion. There is moderate to advanced centrilobular emphysema. There is bilateral pleural and parenchymal scarring. There is scarring or fibrosis in the lung bases, left greater than right. Limited images of the upper abdomen are unremarkable. IMPRESSION: Mild pulmonary fibrosis. Lung RADS category 1S. Recommend 12 month follow-up low-dose chest CT. Reviewed, Interpreted and Dictated by Aleksander Pettit MD Transcribed by Michelle Davey Authenticated and [facility]
== END ==
PROVIDERS: PCP Nurse Practitioner Family; Visit Provider Nurse Practitioner Family
DX: Z87.891 Personal history of nicotine dependence (principal); Z12.2 Encounter for screening for malignant neoplasm of respiratory organs
CPT/HCPCS: 71271

== ENCOUNTER → 2022-06-29 09:11 | Outpatient (CLI) | payer MEDICARE, OTHER, SELFPAY ==
--- NOTE | 2022-06-29 09:14 | MM_ITS ---
PROCEDURE INFORMATION: Exam: MG Bilateral Screening 3D Mammography Exam date and time: 06/29/2022 9:20 AM Age: 72 years old Clinical indication: Screening. No family history of breast cancer. TECHNIQUE: Imaging protocol: Bilateral Screening tomosynthesis and 2D mammography including computer-aided detection (CAD) when performed. COMPARISON: 1. MG SCBI MM Dig screening mamm BI w/CAD 02/19/2018 10:29 AM 2. MG DMSB DIGITAL MAMM-SCREEN BILATERAL 08/02/2010 8:54 AM 3. MG DIGMAMMS MAMMOGRAM SCREEN-POLYMER SPECIALIST N/C 06/13/2007 10:16 AM 4. MG DIGMAMMS MAMMOGRAM SCREEN-POLYMER SPECIALIST N/C 10/23/2002 10:16 AM FINDINGS: MAMMOGRAPHY: Breast composition: The breasts are heterogeneously dense, which may obscure small masses. Mass: Oval 0.4 cm mass in the right upper inner quadrant anterior to middle 3rd. Architectural distortion: None. Calcifications: No suspicious calcifications. Asymmetric density: None. Skin thickening: None. Axillary adenopathy: None. IMPRESSION: Patient will be recalled for right sonography for further evaluation of right breast mass. ASSESSMENT: BI-RADS Category 0: Incomplete- Need Additional Imaging Evaluation and/or Prior Mammograms for Comparison
--- NOTE | 2022-06-29 09:14 | XR_ITS ---
FINAL REPORT TECHNIQUE: Bone densitometry calculations of the lumbar spine and both hips were obtained. CLINICAL HISTORY: . post menopausal screeining FINDINGS: DEXA BONE DENSITY AXIAL SKELETON Using L1-4, the bone mineral density of the spine is 0.901 g/cm2, corresponding to T-score of -1.3. Using the right hip, the bone mineral density of the femoral neck is 0.673 g/cm2, corresponding to a T-score of -2.2. Using the left hip, the bone mineral density of the femoral neck is 0.608 g/cm2, corresponding to a T-score of -2.7. NOTE: T-score: Standard deviation compared with peak bone mass of young adult mean. *Following the recommendations of the International Society of Bone Densitometry, classification of hip BMD is based on the lower of two T-scores; total hip or femoral neck. IMPRESSION: Diminished bone mineral density of the lower lumbar spine and right hip consistent with osteopenia. Diminished bone mineral density of the left hip consistent with osteoporosis. FRAX not reported because: Some T-score for Spine Total or hip Total or femoral neck at or below-2.5. Reviewed, Interpreted and Dictated by Aleksander Pettit MD Transcribed by Belkis Oates Authenticated and . [facility]
== END ==
PROVIDERS: PCP Nurse Practitioner Family; Visit Provider Nurse Practitioner Family
DX: Z12.31 Encounter for screening mammogram for malignant neoplasm of breast (principal); Z78.0 Asymptomatic menopausal state
CPT/HCPCS: 77063; 77067; 77080

== ENCOUNTER → 2022-08-04 14:24 | Outpatient (CLI) | payer MEDICARE, OTHER, SELFPAY ==
--- NOTE | 2022-08-04 14:30 | US_ITS ---
PROCEDURE INFORMATION: Exam: US Right Breast, Complete Exam date and time: 08/04/2022 3:13 PM Age: 72 years old Clinical indication: Abnormal findings on imaging; Right; Additional info: Abnormal mammogram TECHNIQUE: Imaging protocol: Complete ultrasound of all four quadrants of the right breast and the retroareolar regions, including ultrasound of the axilla when performed. Total images: 35 COMPARISON: No prior studies available for comparison. FINDINGS: Breast: A cyst is present at the 1 o'clock position 2 cm from the nipple measuring 4 x 4 x 3 mm. Complex nodule present at the 9 o'clock position 4 cm from the nipple measuring 5 x 3 x 4 mm. Prominent ducts are noted. Right axillary lymphadenopathy is present measuring 1.4 x 1.8 x 1.5 cm. IMPRESSION: 1. Right breast cyst. 2. Complex nodule measuring 4 x 5 x 3 mm present within the right breast. Recommend correlation with mammography. 3. Right axillary lymphadenopathy
== END ==
PROVIDERS: PCP Nurse Practitioner Family; Visit Provider Nurse Practitioner Family
DX: R92.8 Other abnormal and inconclusive findings on diagnostic imaging of breast (principal)
CPT/HCPCS: 76641

== ENCOUNTER → 2022-08-11 14:41 | Outpatient (CLI) | payer MEDICARE, OTHER, SELFPAY | PROVIDERS: PCP Nurse Practitioner Family; Visit Provider Nurse Practitioner Family | DX: R92.8 Other abnormal and inconclusive findings on diagnostic imaging of breast (principal) ==

== ENCOUNTER → 2022-11-07 16:55 | Outpatient (CLI) | payer MEDICARE, OTHER, SELFPAY ==
--- NOTE | 2022-11-07 17:00 | MR_ITS ---
PROCEDURE INFORMATION: Exam: MR Head Without Contrast Exam date and time: 11/07/2022 5:01 PM Age: 72 years old Clinical indication: Dizziness; Additional info: Dizziness HX of arterial ischemic stroke TECHNIQUE: Imaging protocol: Magnetic resonance imaging of the head without contrast. COMPARISON: MR HEAD/BRAIN WO CON 10/04/2020 11:16 AM FINDINGS: Brain: Scattered subcortical T2/FLAIR hyperintensities which are nonspecific but can be seen with small-vessel occlusive change. No mass. No hemorrhage. Cerebral ventricles: Normal. No ventriculomegaly. Bones/joints: Punctate foci of restricted diffusion within the posteromedial left temporal lobe, left thalamus, right centrum semi ovale and posterior parietal lobe. Paranasal sinuses: Normal as visualized. No acute sinusitis. Mastoid air cells: Normal as visualized. No mastoid effusion. Orbital cavities: Unremarkable. Soft tissues: Unremarkable. IMPRESSION: Bilateral punctate foci of restricted diffusion compatible with acute ischemia likely secondary to proximal embolic source.
== END ==
PROVIDERS: PCP Family Medicine; Visit Provider Nurse Practitioner Family
DX: R42 Dizziness and giddiness (principal); Z86.73 Personal history of transient ischemic attack (TIA), and cerebral infarction without residual deficits
CPT/HCPCS: 70551

== ENCOUNTER → 2023-03-23 14:40 | Outpatient (CLI) | payer MEDICARE, OTHER, SELFPAY ==
[2023-03-23 18:11] LABS: Alanine Aminotransferase 28 U/L (12-78); Albumin Level 4.5 g/dl (3.5-5.0); Albumin/Globulin Ratio 1.2 (1.1-1.8); Alkaline Phosphatase 73 U/L (38-126); Anion Gap 16.2 mEq/L (5-15); Aspartate Amino Transferase 42 U/L (14-36); Bilirubin,Total 0.4 mg/dl (0.2-1.3); Blood Urea Nitrogen 14 mg/dl (7-17); Calcium 9.4 mg/dl (8.4-10.2); Carbon Dioxide 29 mmol/L (22.0-30.0); Chloride 98 mmol/L (98-107); Chol/HDL Ratio 3.8 (1-3.5); Cholesterol 186 mg/dl (140-200); Estimated Glomerular Filt Rate 82 ml/min (>60); GFR (African American) 99 ML/MIN (>60); Globulin 3.9 g/dL (1.3-3.2); Glucose 107 mg/dl (74-100); HDL Cholesterol 49 mg/dl (40-60); Potassium 4.2 mmoL/L (3.5-5.1); Sodium 139 mmol/L (136-145); Total Protein,Serum 8.4 g/dl (6.3-8.2); Triglycerides 108 mg/dl (30-150); VLDL Cholesterol 22 mg/dL (0-40)
[2023-03-23 18:16] LABS: Hemoglobin A1C 6.6 % (4.0-6.0)
[2023-03-23 18:22] LABS: Direct LDL Cholesterol 109.18 mg/dL (100-129)
== END ==
PROVIDERS: PCP Nurse Practitioner Family; Visit Provider Nurse Practitioner Family
DX: R31.9 Hematuria, unspecified (principal); E11.9 Type 2 diabetes mellitus without complications; E11.69 Type 2 diabetes mellitus with other specified complication; B96.89 Other specified bacterial agents as the cause of diseases classified elsewhere; Z79.84 Long term (current) use of oral hypoglycemic drugs
CPT/HCPCS: 80053; 80061; 82043; 83036; 87086

== ENCOUNTER → 2023-03-30 14:19 | Outpatient (CLI) | payer MEDICARE, OTHER, SELFPAY ==
--- NOTE | 2023-03-30 14:20 | CT_ITS ---
FINAL REPORT TECHNIQUE: Axial images were obtained from the lung apex to the mid abdomen by computed tomography. This study was performed with techniques to keep radiation doses as low as reasonably achievable (ALARA). Individualized dose reduction techniques using automated exposure control or adjustment of mA and/or kV according to the patient's size were employed. CLINICAL HISTORY: lung cancer screening, CURRENT SMOKER, 1/2 PACK FOR 50 YEARS COMPARISON: 02/08/2022 FINDINGS: CHEST CT LOW DOSE CTDI vol (mGy): 2.90 DLP (mGy-cm): 92.73 There is no axillary adenopathy. There is new mediastinal lymphadenopathy. Large right paratracheal lymph node measures 3.1 cm. Right hilar and subcarinal lymphadenopathy is identified. Subcarinal lymph node measures 3.6 cm. The heart is normal in size. There is no pericardial or pleural effusion. There is a new, 22 x 21 mm right lower lobe nodule which is slightly spiculated. Note is made of emphysema. New ground-glass opacity in the left lower lobe could be infectious or inflammatory. Limited images of the upper abdomen are unremarkable. IMPRESSION: Findings very concerning for primary bronchogenic carcinoma with metastatic disease to right hilar and mediastinal lymph nodes. Lung RADS category 4 X. Recommend PET-CT follow-up. Reviewed, Interpreted and Dictated by Leticia Dunbar MD Transcribed by Michelle Davey Authenticated and [facility]
== END ==
PROVIDERS: PCP Nurse Practitioner Family; Visit Provider Internal Medicine Pulmonary Disease
DX: F17.210 Nicotine dependence, cigarettes, uncomplicated (principal); R06.09 Other forms of dyspnea
CPT/HCPCS: 71271; 94060; 94618; 94726; 94729

== ENCOUNTER → 2023-04-20 11:28 | Outpatient (CLI) | payer MEDICARE, OTHER, SELFPAY ==
--- NOTE | 2023-04-20 12:38 | NM_ITS ---
APPROVED REPORT Exam: Nuclear Stress Test Indication: HTN, DM, HYPERLIPIDEMIA, TOB USE, SOB, FATIGUE Patient Location: Outpatient Stress Tech: Hetal Juarez [place] Tech:THOMAS Rothman RT (R)(N)(M) Ht: 5 ft 4 in Wt: 127 lbs Bra Size: B HR: 78 bpm BP: 199/81 mmHg BSA: 1.61 m2 Rhythm: NSR TID: 0.98 BMI: 21.7 History: HTN, DM, HYPERLIPIDEMIA, TOB USE, SOB, FATIGUE Procedure: Patient received 0.4 mg of intravenous Lexiscan, resting heart rate 78 bpm, resting blood pressure 199/81 mmHg, with Lexiscan maximum heart rate achieved was 99 bpm which is % of the maximum predicted heart rate and blood pressure was 199/81 mmHg. With Lexiscan, patient denied any complaint of chest pain. Cardiac Stress and Resting SPECT Images: Cardiac Stress and Resting SPECT images were obtained using technetium 99m Myoview 31.2 mCi stress and 10.01 mCi at rest. Resting and stress imaging in supine and prone positions demonstrate no evidence of fixed or reversible perfusion defects. Gated imaging demonstrates normal global and regional LV systolic function. LVEF is calculated at 62%. Conclusion: No evidence of fixed or reversible perfusion defects. Gated imaging demonstrates normal global and regional LV systolic function. LVEF is calculated at 62%. Of note, the patient's blood pressure was markedly elevated at baseline (BP 199/81). BP control is recommended. Electronically signed by : Brigitte Le MD 04/24/2023 11:21:54
--- NOTE | 2023-04-20 13:19 | CA_ITS ---
APPROVED REPORT EXAM: Comprehensive 2D, Doppler, and color-flow Echocardiogram Supervisor Compressed Yeast: Ellen Benavidez RDCS Ht: 5 ft 4 in Wt: 127lbs BSA: 1.61 BP: 155/84 mmHg Indications: CAD,CVA,AF,PVD,HTN,SOA 2D Dimensions LA Volume 58.60 mL LA Volume Index 36.40 mL/m2 (M/F) 16-34 M-Mode Dimensions RVDd 2.32 cm (0.9-2.6) LA Diam 3.01 cm (1.9-4.0) LVDd 4.57 cm (3.5-5.7) LVDs 3.07 cm (3.5-5.7) IVSd 0.93 cm (0.6-1.1) PWd 0.82 cm (0.6-1.1) EF (Teich) 61.40% FS 32.80% EDV (Teich) 95.90 mL ESV (Teich) 37.00 mL LV Diastology E Decel Time 190 (160-240 msec) E/A Ratio 0.8 Aortic Valve OPAL Index 0.96 cm2/m2 AoV Peak Zach. 148.0 (50-130 cm/s) AO Peak GR. 8.70 mmHg AO Mean GR. 4.30 (<5 mmHg) AO VTI 28.2 (18-25 cm) OPAL (VTI) 1.58 (2.5-4.5 cm2) Mitral Valve MV E Max Zach. 65.0 (40-130 cm/s) MV A Velocity 83.0 (40-130 cm/s) E/A Ratio 0.78 MV PHT 56.0 ms Tricuspid Valve TR P. Velocity 297.00 cm/s RAP Estimate 10.00 mmHg RVSP 45.20 mmHg Left Ventricle The left ventricle is normal size. The left ventricular systolic function is normal. The left ventricular ejection fraction is within the normal range. There is increased LV wall thickness. There is normal LV segmental wall motion. Diastolic function is indeterminate. LVEF is 60%. Right Ventricle The right ventricle is normal size. The right ventricular systolic function is normal. Atria The left atrium is mildly dilated. The right atrium size is normal. There is no Doppler evidence of interatrial shunt. Aortic Valve The aortic valve is mildly thickened. There is no aortic valvular stenosis. No aortic regurgitation is present. Mitral Valve The mitral valve leaflets are mildly thickened. No evidence of mitral valve stenosis. There is no mitral valve regurgitation noted. Tricuspid Valve The tricuspid valve leaflets are thin and pliable. Trace tricuspid regurgitation. RVSP is 30-35 mmHg. Pulmonic Valve The pulmonic valve leaflets are thin and pliable. Trace pulmonic regurgitation. Great Vessels The aortic root is normal in size. The ascending aorta is normal in size. IVC is normal in size and collapses >50% with inspiration. Pericardium There is no pericardial effusion. Other Information Study Quality: Fair Conclusion Normal biventricular systolic function. Mild biatrial dilatation. No significant valvular stenosis or regurgitation. RVSP 30-35 mmHg. Electronically signed by : Brigitte Le MD 04/26/2023 09:48:46
--- NOTE | 2023-04-20 13:43 | CA_ITS ---
APPROVED REPORT Exam: Pharmacologic Technologist: Hetal Hough, Ht: 5 ft 4 in Wt: 127 lbs BSA: 1.61 m2 HR: 76 bpm BP: 199/81 mmHg Rhythm: NSR Medical History Medications: Amlodipine,,,,, Aspirin,,,,, Metformin,,,,, Losartan,,,,, Albuterol,,,,, CloPIdogrel,,,,, RoSUVASTATIN,,,,, Hydrocortisone 2.5%,,,,, StIloto respimat,,,,, Stress Test Details Test: LEXISCAN Reason for pharmacologic stress test: physical limitation. HR Resting HR: 78 bpm Max Heart Rate (APMHR): 145 bpm Max HR Achieved: 99 bpm Target HR (85% APMHR): 123 bpm % of APMHR: 68 Recovery HR: 85 bpm BP Resting BP: 199.0/81.0 mmHg Max BP: 199.0/81.0 mmHg Recovery BP: 150.0/69.0 mmHg ECG Resting ECG: NSR, PVCs, PAC, nonspecific ST changes in lateral leads Stress ECG: No significant ST changes Arrhythmia: PACs, PVCs Clinical Exercise duration: 04:00 min Highest Stage Achieved: Exercise capacity: 1.0 METs Stress ECG Conclusion Symptoms: SOA, mild head discomfort. No CP. Arrhythmias/Ectopy: Occasional PACs, PVCs ST-T Changes: No significant ST changes. Conclusion: Unremarkable Lexiscan stress. Myoview images reported separately. Test Summary REST . . . . . . . Resting REST 03:48 . . 78 . 199/ 81 . . Stage 1 01:00 . . 90 . . . . Stage 2 01:00 . . 96 . 166/ 79 . . Stage 3 01:00 . . 90 . 178/ 70 . . Stage 4 01:00 . . 88 . 170/ 74 . Stop exercise at 04:00 RECOVERY 01:00 . . 89 . 178/ 72 . . RECOVERY 02:00 . . 87 . 178/ 72 . . RECOVERY 03:00 . . 86 . 160/ 72 . . RECOVERY 03:35 . . 87 . 150/ 69 . . Electronically signed by : Brigitte Le MD 04/24/2023 11:20:19
== END ==
PROVIDERS: PCP Nurse Practitioner Family; Visit Provider Nurse Practitioner
DX: E11.9 Type 2 diabetes mellitus without complications (principal); E78.5 Hyperlipidemia, unspecified; F17.200 Nicotine dependence, unspecified, uncomplicated; I10 Essential (primary) hypertension; I27.20 Pulmonary hypertension, unspecified; I63.9 Cerebral infarction, unspecified; I73.9 Peripheral vascular disease, unspecified; J44.9 Chronic obstructive pulmonary disease, unspecified; K21.9 Gastro-esophageal reflux disease without esophagitis; R06.00 Dyspnea, unspecified
CPT/HCPCS: 78452; 93017; 93018; 93306; A9502; J2785

== ENCOUNTER 2023-05-07 09:05 | Day surgery (SDC) | payer MEDICARE, OTHER, SELFPAY ==
[2023-05-03 14:19] VITALS: BMI 21.7
[2023-05-07] VITALS (9 sets, daily range): BP systolic 136–175; BP diastolic 68–84; PULSE 78–85; RESP 14–19; TEMP 36.4–36.6; O2SAT 95–97
[2023-05-07] MEDS: LACTATED RINGERS 1000ML 1,000 ML 25 ML IV (09:32)
[2023-05-07 09:50] LABS: POC Glucose,Bedside 177 (70-110)
[2023-05-07 09:51] LABS: Basophils % 0.5 % (0.1-2.0); Eosinophils # 0.1 K/mm3 (0.0-0.4); Eosinophils % 1.8 % (0.1-12.0); Hematocrit 45.5 % (37.0-47.0); Hemoglobin 15.6 g/dL (12.2-16.2); Lymphocytes # 0.9 K/mm3 (0.7-4.5); Lymphocytes % 15.3 % (10-50); Mean Corpuscular HGB Conc 34.2 g/dL (31.8-35.4); Mean Corpuscular Hemoglobin 30.1 pg (27.0-31.2); Mean Platelet Volume 7.5 fl (7.4-10.4); Monocytes # 0.3 K/mm3 (0.1-1.0); Monocytes % 4.4 % (1.7-9.3); Neutrophils # 4.8 K/mm3 (1.8-7.8); Platelet Count 266 K/mm3 (142-424); Red Blood Count 5.18 M/mm3 (4.20-5.40); Red Cell Distribution Width 13.8 % (11.5-17.5); White Blood Count 6.1 K/mm3 (4.8-10.8)
[2023-05-07 09:58] LABS: Chloride 100 mmol/L (98-107); Potassium 4.2 mmoL/L (3.5-5.1); Sodium 137 mmol/L (136-145)
[2023-05-07 10:01] LABS: Anion Gap 11.2 mEq/L (5-15); Blood Urea Nitrogen 14 mg/dl (7-17); Calcium 9.4 mg/dl (8.4-10.2); Carbon Dioxide 30 mmol/L (22.0-30.0); Creatinine Clearance Estimated 44 mL/min (50-200); Estimated Glomerular Filt Rate 61 ml/min (>60); GFR (African American) 74 ML/MIN (>60); Glucose 192 mg/dl (74-100)
--- NOTE | 2023-05-07 10:58 | P.PNANES_ITS ---
[facility] Disclaimer: The information contained in this section may have been updated after the patient was seen, as this information can be updated by other users. Medical History Allergies Bronchitis Chronic cough COPD (chronic obstructive pulmonary disease) Diabetes mellitus, type 2 Dyspnea on exertion Encounter for screening for malignant neoplasm of lung Fibrosis of lung History of gastroesophageal reflux (GERD) Hyperlipidemia Hypertension Lung nodule Pseudoaneurysm Pulmonary emphysema Smoking greater than 30 pack years Stroke Surgical History H/O total hysterectomy History of surgery on lower extremity Family History Other Cancer Diabetes Social History Smoking Status: Current every day smoker tobacco type: cigarettes packs per day: 1 alcohol intake: never counseling provided: provider counseling substance use type: denies use current occupational status: retired Travel in the last 8 weeks: None household members: spouse housing: house number of children: 4 current occupational exposures/hazards: No caffeine: Yes (coffee) [facility] Anesthesia Checklist Patient Identification Patient Identification: Arm Band Structural Data Admitted From: Home Planned Operative Procedure/s: Bronchoscopy with EBUS Consent for Planned Operative Procedure(s) Verified: Yes Verified Documents: Surgical Consent and History and Physical NPO Status Verified Time NPO: 00:00 Additional verifications Anesthesia Reactions: No Hx Blood Transfusions: No Airway Assessment Mallampati Score:: Class II C-Spine Mobility Assessed: Yes TMJ Mobility Assessed: Yes Dentition: Poor Dentition Neurological Assessment Level of Consciousness: Awake and Alert Anesthesia Plan Anesthesia Risk discussed: Yes Anesthesia Plan: Verified ASA Class: III Anesthesia Type: General
--- NOTE | 2023-05-07 12:40 | XR_ITS ---
FINAL REPORT CLINICAL HISTORY: BRONCHOSCOPY, 12.67 mGy, 1:1 fluoro time FINDINGS: FLUOROSCOPY LESS THAN 1 HOUR HISTORY: Fluoroscopy guidance. FINDINGS: Fluoroscopic guidance was provided for bronchoscopy. A single spot film was obtained. A total of 1:1 minute of fluoroscopy time were used. DAP: 12.67 mGy IMPRESSION: As above. Reviewed, Interpreted and Dictated by Aleksander Pettit MD Transcribed by Avis Weiss Authenticated and [facility]
--- NOTE | 2023-05-07 12:58 | XR_ITS ---
FINAL REPORT TECHNIQUE: Single view chest CLINICAL HISTORY: post bronch FINDINGS: A single view of the chest was obtained. The heart and mediastinum are within normal limits. There is dense right base airspace opacity which may represent atelectasis or pneumonia. Recommend follow-up. There is no pneumothorax. Osseous structures are unremarkable. IMPRESSION: Dense right base airspace opacity which may represent pneumonia. Recommend follow-up. Reviewed, Interpreted and Dictated by Aleksander Pettit MD Transcribed by Lenore Nogueira Authenticated and . [facility]
--- NOTE | 2023-05-07 12:59 | EXP.BRONCH.N ---
Procedure: Date: 05/07/23 Patient Date of :: 1950 Procedure Performed:: Bronchoscopy airway examination, endobronchial and transbronchial lung biopsy and endobronchial ultrasound-guided fine-needle aspiration of lymph node: Indications:: Lung nodule and lymphadenopathy Performing Provider:: Armando Donaldson MD Referring Provider:: Dr: Renetta Raymundo APRN Sedation:: General anesthesia Procedure:: Bronchoscopy airway examination, endobronchial biopsy, transbronchial lung biopsy and endobronchial ultrasound-guided fine-needle aspiration of lymph node: Clean EBUS bronchoscopy was advanced the ET tube and lymph node surveillance was performed. Patient noted lymphadenopathy at station 10 R, station 7, station 10 left and station 4R. EBUS guided FNA was performed at each of these lymph node stations with 5 passes at each of the lymph node stations. Tissue obtained was collected and CytoLyt for cytopathologic examination. Scant tissue obtained from station 10 R EBUS bronchoscopy was retracted and a clean DIAGNOSTIC bronchoscopy was advanced through the ET tube and airways were examined up to subsegmental bronchi. Airways appeared grossly normal except for right lower lobe segmental bronchi that noted to have endobronchial lesion. No other evidence of mucoid secretions, mucous plugging active bleeding/old blood clots noted. Bronchoalveolar lavage was performed in the RIGHT LOWER LOBE with instillation of 60 cc normal saline with return of 30 cc back. BAL fluid was sent for cytopathologic examination. No cultures were sent. Total of five endobronchial biopsies was performed at the noted right lower lobe endobronchial lesion and were sent in formalin for cytopathologic examination. Transbronchial biopsy was performed in the RRIGHT LOWER LOBE with a total of 5 biopsies performed and were sent in formalin for cytopathologic examination. Patient tolerated the procedure with no immediate acute complications. Findings:: Please see the procedure note Recommendations:: Postoperative bronchoscopy instructions Follow in pulmonary clinic in 5 to 10 days Complications:: No acute immediate complication Estimated blood obtained (mL): 5
[2023-05-07 13:19] LABS: POC Glucose,Bedside 178 (70-110)
--- NOTE | 2023-05-07 13:47 | EXP.ANES.I ---
[facility] Anesthesia Record Part I Anesthesia Record I Intake, IV Amount: 400 Hydration: Adequate Estimated blood loss (mL): 5 Urine output (mL): 0 Blood Products used (#): none Blood Pressure: 139/80 SaO2: 97 Pulse Rate: 79 Airway Patency: Patent Respiratory Rate: 14 Temperature: 97.5 F Patient is:: Awake, Drowsy and Stable Stable to PACU at:: 12:59
--- NOTE | 2023-05-08 08:10 | EXP.ANES.II ---
[facility] Anesthesia Record Part II Anesthesia Record Part II Discharge Time: 13:14 Destination: Surgical Day Care (OP Surgery) PACU nurse assessment reviewed?: Yes Patient Condition:: Good Anesthesia Complications:: None Swallowing reflex intact?: Yes Airway Patency: Patent Cyanosis?: No Blood Pressure: 152/73 SaO2: 97 Respiratory Rate: 19 Pulse Rate: 83 Temperature: 97.8 F Mental Status: Alert & Oriented Pain level:: 0 Nausea and/or vomitting:: None Intake, IV Amount: 0 Hydration: Adequate
[2023-05-08 08:11] VITALS: BP 152/73; PULSE 83; RESP 19; TEMP 36.6; O2SAT 97
== END 2023-05-07 13:57 | disposition home or self-care (01) ==
PROVIDERS: PCP Nurse Practitioner Family; Visit Provider Internal Medicine Pulmonary Disease
PROC: (CPT 31624; principal; 2023-05-07 10:30)
DX: J84.10 Pulmonary fibrosis, unspecified (principal); J43.9 Emphysema, unspecified; R93.89 Abnormal findings on diagnostic imaging of other specified body structures; R06.9 Unspecified abnormalities of breathing; Z79.899 Other long term (current) drug therapy; Z79.4 Long term (current) use of insulin; E11.9 Type 2 diabetes mellitus without complications; F17.210 Nicotine dependence, cigarettes, uncomplicated; C34.31 Malignant neoplasm of lower lobe, right bronchus or lung; C77.9 Secondary and unspecified malignant neoplasm of lymph node, unspecified
CPT/HCPCS: 31624; 31628; 31653; 71045; 76000; 80048; 82962; 85025; 88112; 88173; 88305; 88341; 88342; J2405

== ENCOUNTER → 2023-05-15 15:16 | Outpatient (CLI) | payer MEDICARE, OTHER, SELFPAY ==
--- NOTE | 2023-05-15 15:19 | MR_ITS ---
PROCEDURE INFORMATION: Exam: MR Head Without and With Contrast Exam date and time: 05/15/2023 4:10 PM Age: 73 years old Clinical indication: Stroke-like symptoms; Other: Small cell lung cancer TECHNIQUE: Imaging protocol: Magnetic resonance imaging of the head without and with contrast. Contrast material: PROHANCE; Contrast volume: 10 ml; Contrast route: IV; COMPARISON: MR HEAD/BRAIN WO CON 11/07/2022 5:01 PM FINDINGS: Brain: There is a new focus of restricted diffusion within the right periatrial white matter, consistent with acute or early subacute lacunar infarct. A new additional diffusion hyperintense focus is seen within the left occipital white matter, which is heterogeneous in signal intensity on the ADC trace sequence and consistent with a subacute lacunar infarct. Embolic disease is considered. Mild increased diffusion signal intensity seen within the posterior limb of the right internal capsule, stable compared to the previous MRI. A few diffusion hyperintense foci of T2 shine through artifact or subacute lacunar infarcts are seen within the left frontal white matter. Chronic lacunar infarcts are seen within the bilateral thalami, left basal ganglia, and bilateral cerebral white matter. These infarcts are hyperintense on T2 and centrally hypointense on FLAIR. Several subtle foci of increased diffusion signal intensity are seen within the right frontal white matter, without acute infarction when correlated with the ADC trace sequence. There is mild prominence of sulci, compatible with atrophy. There is moderate additional FLAIR hyperintensity within the cerebral white matter. There is no mass effect or restricted diffusion associated with this finding. In a patient this age, this likely represents chronic small vessel ischemic disease. No enhancing intracranial mass is identified. Cerebral ventricles: The ventricles are age appropriate in size. Bones/joints: Degenerative changes are identified involving the cervical spine. Evaluation of cervical spine is limited. Paranasal sinuses: Minimal mucosal thickening of scattered ethmoid air cells. Mastoid air cells: No significant mastoid effusions. Orbital cavities: Unremarkable, as visualized. Soft tissues: Unremarkable, as visualized. IMPRESSION: 1. There is a new focus of restricted diffusion within the right periatrial white matter, consistent with acute or early subacute lacunar infarct. A new subacute lacunar infarct is seen within the left occipital white matter. Embolic disease is considered. 2. A few diffusion hyperintense foci of artifact or subacute lacunar infarcts are seen within the left frontal white matter. 3. Chronic lacunar infarcts are seen within the bilateral thalami, left basal ganglia, and bilateral cerebral white matter. These infarcts are hyperintense on T2 and centrally hypointense on FLAIR. 4. Mild atrophy. 5. Moderate additional white matter disease, likely representing chronic small vessel ischemic disease. 6. Additional findings described above.
--- NOTE | 2023-05-15 18:25 | PC.NURSE ---
Dr Flannery notified at this time of critical findings by this RN. states he will follow up with the patient in the morning at her scheduled appointment.
== END ==
LOC: RAD 15:17
PROVIDERS: PCP Nurse Practitioner Family; Visit Provider Internal Medicine Medical Oncology
DX: C34.90 Malignant neoplasm of unspecified part of unspecified bronchus or lung (principal); Z72.0 Tobacco use
CPT/HCPCS: 70553; A9576

== ENCOUNTER 2023-05-16 11:45 | Outpatient (CLI) | payer MEDICARE, OTHER, SELFPAY ==
[2023-05-16 11:48] VITALS: BMI 21.4
[2023-05-16 12:27] LABS: Basophils # 0.1 K/mm3 (0-0.2); Basophils % 0.7 % (0.1-2.0); Eosinophils # 0.2 K/mm3 (0.0-0.4); Eosinophils % 2.3 % (0.1-12.0); Hematocrit 46.1 % (37.0-47.0); Hemoglobin 15.5 g/dL (12.2-16.2); Lymphocytes # 1.2 K/mm3 (0.7-4.5); Lymphocytes % 16.6 % (10-50); Mean Corpuscular HGB Conc 33.7 g/dL (31.8-35.4); Mean Corpuscular Hemoglobin 29.1 pg (27.0-31.2); Mean Corpuscular Volume 86.2 fl (81-99); Mean Platelet Volume 8.5 fl (7.4-10.4); Monocytes # 0.4 K/mm3 (0.1-1.0); Neutrophils # 5.2 K/mm3 (1.8-7.8); Neutrophils % 74.5 % (37.0-80.0); Platelet Count 272 K/mm3 (142-424); Red Blood Count 5.34 M/mm3 (4.20-5.40); White Blood Count 6.9 K/mm3 (4.8-10.8)
--- NOTE | 2023-05-16 12:34 | PC.NURSE ---
1210 Labs collected as ordered/ CBC, CMP, TSH, T4 per venipuncture to R AC with butterfly needle. Two unsuccessful sticks with butterfly needle but unable to obtain enough blood for specimens, one to L AC and one to L hand/wrist area. Patient tolerated well with no problems noted.
[2023-05-16 12:36] LABS: Alanine Aminotransferase 58 U/L (12-78); Albumin Level 4.3 g/dl (3.5-5.0); Albumin/Globulin Ratio 1.1 (1.1-1.8); Alkaline Phosphatase 105 U/L (38-126); Aspartate Amino Transferase 126 U/L (14-36); Bilirubin,Total 0.8 mg/dl (0.2-1.3); Blood Urea Nitrogen 17 mg/dl (7-17); Calcium 8.7 mg/dl (8.4-10.2); Carbon Dioxide 28 mmol/L (22.0-30.0); Chloride 101 mmol/L (98-107); Creatinine Clearance Estimated 44 mL/min (50-200); Estimated Glomerular Filt Rate 54 ml/min (>60); GFR (African American) 65 ML/MIN (>60); Globulin 3.8 g/dL (1.3-3.2); Glucose 163 mg/dl (74-100); Potassium 3.5 mmoL/L (3.5-5.1); Total Protein,Serum 8.1 g/dl (6.3-8.2)
[2023-05-16 12:51] LABS: Anion Gap 10.5 mEq/L (5-15); Sodium 136 mmol/L (136-145)
[2023-05-16 12:52] LABS: T4 (Thyroxine) 12.5 ug/dl (5.53-11.0)
== END 2023-05-16 12:20 ==
LOC: INF 11:46
PROVIDERS: Visit Provider Internal Medicine Medical Oncology
DX: R91.1 Solitary pulmonary nodule (principal); I10 Essential (primary) hypertension; R68.89 Other general symptoms and signs
CPT/HCPCS: 36415; 80053; 84436; 84443; 85025

== ENCOUNTER 2023-05-18 09:59 | Outpatient (CLI) | payer MEDICARE, OTHER, SELFPAY ==
[2023-05-18 10:46] VITALS: BMI 21.4
--- NOTE | 2023-05-18 10:47 | XR_ITS ---
FINAL REPORT CLINICAL HISTORY: PICC line placement COMPARISON: 05/07/2023 FINDINGS: The patient is rotated to the left. PICC line is present with the tip in the SVC. The heart size is normal. The mediastinum is normal. There are moderate coarse interstitial opacities in both lungs, probably chronic. Localized airspace opacity in the right infrahilar region likely represents a small focus of acute pneumonia. There are no pleural effusions. There is no pneumothorax. There is no osseous abnormality. IMPRESSION: Small focus acute pneumonia right infrahilar region. PICC line tip in the SVC. Reviewed, Interpreted and Dictated by Aleksander Pettit MD Transcribed by Avis Weiss Authenticated and . [facility]
--- NOTE | 2023-05-18 14:01 | PC.NURSE ---
1245- Preliminary CXR report showed good placement on PICC per ZOEY Cabrales. Pt d/c home with daughter. PICC education provided. pt and daughter verbalized understanding.
== END 2023-05-18 12:50 | disposition home or self-care (01) ==
LOC: INF 10:00
PROVIDERS: PCP Nurse Practitioner Family; Visit Provider Internal Medicine Medical Oncology
DX: Z45.2 Encounter for adjustment and management of vascular access device (principal)
CPT/HCPCS: 36569; 71045; C1751

== ENCOUNTER 2023-05-22 09:14 | Outpatient (CLI) | payer MEDICARE, OTHER, SELFPAY ==
[2023-05-22] VITALS (14 sets, daily range): BP systolic 159–193; BP diastolic 66–88; PULSE 69–84; RESP 18–19; TEMP 36.1; O2SAT 94
[2023-05-22] MEDS: DEXAMETHASONE 4MG TABLET 12 MG (09:51)
[2023-05-22] MEDS: APREPITANT 125MG/80MG TRIFOLD PACK 1 PACKET PO (09:51)
[2023-05-22] MEDS: 0.9 % SODIUM CHLORIDE 100 ML IV (09:51)
[2023-05-22] MEDS: ONDANSETRON 4MG ODT 16 MG (09:51)
[2023-05-22] MEDS: ATEZOLIZUMAB IV (11:48)
[2023-05-22] MEDS: SODIUM CHLORIDE 0.9% IV ×2 (11:48→12:59)
[2023-05-22] MEDS: CARBOPLATIN IV (12:59)
== END 2023-05-22 13:52 | disposition home or self-care (01) ==
LOC: INF 09:15
PROVIDERS: PCP Nurse Practitioner Family; Visit Provider Internal Medicine Medical Oncology
DX: Z51.11 Encounter for antineoplastic chemotherapy (principal); C34.31 Malignant neoplasm of lower lobe, right bronchus or lung; Z72.0 Tobacco use; C34.90 Malignant neoplasm of unspecified part of unspecified bronchus or lung
CPT/HCPCS: 96413; 96415; 96417; J8501; J9022; J9045; J9181

== ENCOUNTER 2023-05-23 09:04 | Outpatient (CLI) | payer MEDICARE, OTHER, SELFPAY ==
[2023-05-23] MEDS: SODIUM CHLORIDE 0.9% 50ML BAG 50 ML IV (09:20)
[2023-05-23] MEDS: ONDANSETRON 4MG ODT 16 MG SL (09:20)
[2023-05-23 10:05] VITALS: BP 151/71; PULSE 78; RESP 19; TEMP 36.2; O2SAT 94
[2023-05-23 10:20] VITALS: BP 180/81; PULSE 79; RESP 19
[2023-05-23 10:50] VITALS: BP 188/79; PULSE 83; RESP 19
[2023-05-23 11:05] VITALS: RESP 19
[2023-05-23 11:20] VITALS: BP 183/82; PULSE 75; RESP 19; O2SAT 94
== END 2023-05-23 11:20 | disposition home or self-care (01) ==
LOC: INF 09:06
PROVIDERS: PCP Nurse Practitioner Family; Visit Provider Internal Medicine Medical Oncology
DX: C34.91 Malignant neoplasm of unspecified part of right bronchus or lung (principal)
CPT/HCPCS: 96413; J9181

== ENCOUNTER 2023-05-24 12:16 | Outpatient (CLI) | payer MEDICARE, OTHER, SELFPAY ==
[2023-05-24] MEDS: ONDANSETRON 4MG ODT 16 MG (12:25)
[2023-05-24] MEDS: 0.9 % SODIUM CHLORIDE 50 ML 100 ML IV (12:25)
[2023-05-24 13:00] VITALS: BP 130/74; PULSE 86; RESP 19; O2SAT 95
[2023-05-24 14:20] VITALS: BP 163/77; PULSE 78; RESP 19; O2SAT 100
== END 2023-05-24 14:20 | disposition home or self-care (01) ==
LOC: INF 12:17
PROVIDERS: PCP Nurse Practitioner Family; Visit Provider Internal Medicine Medical Oncology
DX: Z51.11 Encounter for antineoplastic chemotherapy (principal); C34.91 Malignant neoplasm of unspecified part of right bronchus or lung
CPT/HCPCS: 96413; J9181

== ENCOUNTER 2023-05-28 11:17 | Outpatient (CLI) | payer MEDICARE, OTHER, SELFPAY ==
--- NOTE | 2023-05-28 11:24 | XR_ITS ---
FINAL REPORT CLINICAL HISTORY: pneumonia COMPARISON: 05/18/2023 FINDINGS: 2 views of the chest were obtained . There is a left PICC in the region of the left brachiocephalic vein. The heart is normal in size. The mediastinum is within normal limits. The lungs are hyperinflated consistent with COPD. There are mild left base opacities which may represent atelectasis or pneumonia. There is no pneumothorax. Osseous structures are unremarkable. IMPRESSION: Mild left base opacities likely representing atelectasis or pneumonia. Reviewed, Interpreted and Dictated by Jeff Avila III, MD Transcribed by Lenore Nogueira Authenticated and [facility]
[2023-05-28] MEDS: CATHFLO 2MG VIAL 2 MG (12:00)
--- NOTE | 2023-05-28 13:16 | PC.NURSE ---
05/28/23 1300 One hour has elapsed since cath jack was placed in the pt's picc line. Attempt made to draw blood back and immediate blood return was noted. Second syringe placed on picc and attempt made to draw blood for labs, unable to obtain any more blood return. Multiple attempts made using saline flushing and arm repositioning without success. Spoke with pt and determined that we would proceed with a venipuncture using a butterfly access needle to obtain labs. Venipuncture performed using a butterfly access needle to pts lt fa/wrist x 1 stick and blood obtained for labs. Needle was withdrawn and site secured with 2x2 gauze and coban. Pt scheduled to return next week for picc line drsg change and discussed with pt rechecking the picc line then for blood return. Pt/family agreeable to this poc.
[2023-05-28 13:50] LABS: Alanine Aminotransferase 89 U/L (12-78); Albumin Level 3.5 g/dl (3.5-5.0); Albumin/Globulin Ratio 1.1 (1.1-1.8); Alkaline Phosphatase 92 U/L (38-126); Anion Gap 10.1 mEq/L (5-15); Aspartate Amino Transferase 161 U/L (14-36); Bilirubin,Total 0.6 mg/dl (0.2-1.3); Blood Urea Nitrogen 48 mg/dl (7-17); Carbon Dioxide 23 mmol/L (22.0-30.0); Chloride 105 mmol/L (98-107); Estimated Glomerular Filt Rate 40 ml/min (>60); GFR (African American) 48 ML/MIN (>60); Globulin 3.1 g/dL (1.3-3.2); Glucose 223 mg/dl (74-100); Potassium 4.1 mmoL/L (3.5-5.1); Sodium 134 mmol/L (136-145); Total Protein,Serum 6.6 g/dl (6.3-8.2)
[2023-05-30 11:13] LABS: Insulin Level Total 9.6 uIU/mL (2.6-24.9)
== END 2023-05-28 13:24 | disposition home or self-care (01) ==
LOC: INF 11:18
PROVIDERS: PCP Nurse Practitioner Family; Visit Provider Nurse Practitioner Family
DX: J18.9 Pneumonia, unspecified organism (principal); R73.09 Other abnormal glucose; Z45.2 Encounter for adjustment and management of vascular access device; C34.91 Malignant neoplasm of unspecified part of right bronchus or lung
CPT/HCPCS: 36415; 36593; 71046; 80053; 83036; 83525; 96523

== ENCOUNTER 2023-05-31 09:43 | Emergency (ER) | payer MEDICARE, OTHER, SELFPAY ==
[2023-05-31] VITALS (10 sets, daily range): BP systolic 114–189; BP diastolic 49–79; PULSE 72–84; RESP 16–18; TEMP 36.7; O2SAT 94–97; BMI 21.1
--- NOTE | 2023-05-31 10:29 | PC.NURSE ---
DR PEMBERTON AT BEDSIDE
--- NOTE | 2023-05-31 10:39 | CT_ITS ---
FINAL REPORT CLINICAL HISTORY: left lower extremity weakness h/o cva COMPARISON: 10/03/2020 FINDINGS: Axial images of the head were obtained without contrast. Coronal reformatted images were also obtained. This study was performed with techniques to keep radiation doses as low as reasonably achievable (ALARA). Individualized dose reduction techniques using automated exposure control or adjustment of mA and/or kV according to the patient''s size were employed. There is generalized age-appropriate atrophy. Periventricular low-attenuation areas are seen consistent with moderate chronic ischemic changes. There is no evidence of intracranial hemorrhage or mass. There is no evidence of acute infarct. There is no evidence of shift of the midline structures. No skull abnormality is seen on the bone window images. IMPRESSION: Stable atrophy and moderate periventricular chronic ischemic changes. No acute intracranial abnormality identified. Reviewed, Interpreted and Dictated by Jeff Avila III, MD Transcribed by Avis Weiss Authenticated and . [facility]
--- NOTE | 2023-05-31 10:40 | XR_ITS ---
FINAL REPORT CLINICAL HISTORY: dyspnea former smoker lung cancer COMPARISON: 05/28/2023 FINDINGS: SINGLE-VIEW CHEST The heart size is normal. The mediastinum is normal. Left PICC line is again identified. There are worsening bibasilar opacities consistent with worsening pneumonia or atelectasis. There is no pneumothorax. IMPRESSION: Worsening pneumonia or atelectasis. Reviewed, Interpreted and Dictated by Jeff Avila III, MD Transcribed by Michelle Davey Authenticated and [facility]
--- NOTE | 2023-05-31 10:44 | HMH.EDGENADL ---
Discharge Plan Disposition Patient Disposition: Admitted Chief Complaint: Weakness Prescriptions Prescriptions: No Action albuterol sulfate 90 mcg/actuation HFA aerosol inhaler 2 inh inhalation QID PRN (Reason: shortness of breath or wheezing) 90 Days Qty: 8.5 2RF (DME) Dexcom G7 Therapy Site Coordinator [facility] See Rx Instructions .Route Qty: 1 0RF Rx Instructions: As directed (DME) Dexcom G7 Sensor Device See Rx Instructions .Route Qty: 9 1RF Rx Instructions: As directed, Change every 10 days aspirin [Adult Aspirin Regimen] 81 mg tablet,delayed release (DR/EC) 81 mg PO DAILY Qty: 90 3RF (DME) blood-glucose meter [True Metrix Air Glucose Meter] Kit See Rx Instructions .ROUTE .MEDSUPPLY Qty: 1 Rx Instructions: As directed alcohol swabs [DropSafe Alcohol Prep Pads] Pads, Medicated 1 pad topical DAILY (DME) True Metrix Level 1 Solution See Rx Instructions .ROUTE .MEDSUPPLY Qty: 1 Rx Instructions: As directed (DME) lancets [TRUEplus Lancets] 33 gauge misc See Rx Instructions .ROUTE .MEDSUPPLY Qty: 100 Rx Instructions: As directed clopidogrel [Plavix] 75 mg tablet 75 mg PO DAILY 90 Days Qty: 90 3RF losartan 100 mg tablet 100 mg PO DAILY 90 Days Qty: 90 3RF rosuvastatin 20 mg tablet 20 mg PO DAILY 90 Days Qty: 90 3RF hydrocortisone 2.5 % cream 1 applic topical DAILY PRN (Reason: rash) hydrocodone-acetaminophen 5-325 mg tablet See Rx Instructions PO Q6H PRN (Reason: pain (scale score 7-10)) Qty: 60 0RF Rx Instructions: 1 to 2 tabs orally every 6 hours PRN; alprazolam 0.5 mg tablet 0.5 mg PO TID PRN (Reason: anxiety) Qty: 60 1RF (DME) blood-glucose meter [True Metrix Air Glucose Meter] [facility] See Rx Instructions .ROUTE .COMPLEX Qty: 1 10RF Dose Instruction: USE DIRECTED Rx Instructions: USE DIRECTED ipratropium bromide 21 mcg (0.03 %) spray,non-aerosol 2 spray intranasal BID PRN (Reason: allergy symptoms) Qty: 30 2RF Rx Instructions: administer into each nostril Janumet XR 50-500 mg tablet, ER multiphase 24 hr 1 tab PO DAILY 90 Days Qty: 90 2RF azithromycin [Zithromax Z-Rogerio] 250 mg tablet See Rx Instructions PO .COMPLEX 5 Days Qty: 6 0RF Rx Instructions: For 250 mg dose pack: take 500 mg today (day 1), then 250 mg for 4 days (days 2-5) PO prochlorperazine maleate [Compazine] 10 mg Tablet 10 mg PO Q6H PRN (Reason: Nausea And Vomiting) ondansetron 8 mg Tablet,Disintegrating 8 mg PO Q8H PRN (Reason: Nausea And Vomiting) paroxetine HCl [Paxil] 20 mg tablet 20 mg PO DAILY PRN Referrals Follow up/Referrals: Renetta Raymundo APRN [Primary Care Provider] - See instructions Clinical Impressions Clinical Impression: Acute dehydration, Left leg weakness, Decubitus ulcer, stage 2, Neutropenia, Thrombocytopenia, Small cell carcinoma with metastasis, Unable to care for self, Hypomagnesemia Discharge ED Provider: Kristen Mcmanus General Adult HPI General Chief complaint: Weakness Stated complaint: WEAKNESS Time Seen by Provider: 05/31/23 10:24 Mode of Arrival: Wheelchair Source of Information: Patient Limitations: No Limitations Description of Symptoms (Recalled from ER Triage Doc. by RN): Patient complaint of increased weakness and feeling sick to her stomach since rec'ing chemo last week. History of Present Illness HPI narrative: Patient is a 73-year-old female who has a history of metastatic lung cancer with metastatic disease to the liver who recently has been on chemotherapy presenting today with profound weakness. Does have a history of a stroke with chronic left-sided weakness but that is gotten significantly worse in the last several days to the point where she cannot walk. She states she has been bedbound and not moving around much and has significant pain in her decubitus region of her lower back and bottom as well. Denies any urinary symptoms has had a mild cough. Feels excessively dry from a mucous membrane standpoint. And just overall she states she feels poor and profoundly weak. Related Data Home Medications Medication Instructions Recorded Confirmed alcohol swabs (DropSafe Alcohol 1 pad topical DAILY 01/19/23 05/28/23 Prep Pads) blood glucose control, low (True #1 ea 01/19/23 05/28/23 Metrix Level 1 solution) blood-glucose meter (True Metrix #1 ea 01/19/23 05/28/23 Air Glucose Meter kit) lancets 33 gauge (TRUEplus Lancets) #100 ea 01/19/23 05/28/23 hydrocortisone 2.5 % topical cream 1 applic topical DAILY PRN rash 03/23/23 05/28/23 ondansetron 8 mg disintegrating 8 mg PO Q8H PRN Nausea And Vomiting 05/24/23 05/28/23 tablet prochlorperazine maleate 10 mg 10 mg PO Q6H PRN Nausea And 05/24/23 05/28/23 tablet (Compazine) Vomiting paroxetine HCl 20 mg tablet (Paxil) 20 mg PO DAILY PRN 05/28/23 05/28/23 Previous Rx's Medication Instructions Recorded aspirin 81 mg tablet,delayed 81 mg PO DAILY #90 tabs 11/01/22 release (Adult Aspirin Regimen) clopidogrel 75 mg tablet (Plavix) 75 mg PO DAILY 90 days #90 tabs 01/19/23 losartan 100 mg tablet 100 mg PO DAILY 90 days #90 tabs 01/19/23 rosuvastatin 20 mg tablet 20 mg PO DAILY 90 days #90 tabs 01/19/23 albuterol sulfate 90 mcg/actuation 2 inh inhalation QID PRN shortness 03/21/23 aerosol inhaler of breath or wheezing 90 days #8.5 grams blood-glucose meter (True Metrix #1 kit 04/03/23 Air Glucose Meter) ipratropium bromide 21 mcg (0.03 2 spray intranasal BID PRN allergy 04/25/23 %) nasal spray symptoms #30 mL hydrocodone 5 mg-acetaminophen 325 See Rx Instructions PO Q6H PRN 05/10/23 mg tablet pain (scale score 7-10) #60 tabs alprazolam 0.5 mg tablet 0.5 mg PO TID PRN anxiety #60 tabs 05/16/23 blood-glucose meter,continuous #1 ea 05/28/23 (Dexcom G7 Therapy Site Coordinator) blood-glucose sensor (Dexcom G7 #9 ea 05/28/23 Sensor device) azithromycin 250 mg tablet See Rx Instructions PO .COMPLEX 5 05/30/23 (Zithromax Z-Rogerio) days #6 tabs sitagliptin phos 50 mg-metformin 1 tab PO DAILY 90 days #90 tabs 05/30/23 ER 500 mg tablet,extended rel 24h mp (Janumet XR) Allergies Allergy/AdvReac Type Severity Reaction Status Date / Time Penicillins [PENICILLINS] Allergy Mild rash Verified 05/28/23 10:02 cephalexin [CEPHALEXIN] Allergy Unknown Verified 05/28/23 10:02 Cephalosporins Allergy Unknown Verified 05/28/23 10:02 [CEPHALOSPORINS] nitrofurantoin Allergy Unknown Verified 05/28/23 10:02 [NITROFURANTOIN] Sulfa (Sulfonamide Allergy Unknown Verified 05/28/23 10:02 Antibiotics) [SULFA (SULFONAMIDE ANTIBIOTICS)] [facility] Disclaimer: The information contained in this section may have been updated after the patient was seen, as this information can be updated by other users. Medical History Allergies Bronchitis Chronic cough COPD (chronic obstructive pulmonary disease) Diabetes mellitus, type 2 Dyspnea on exertion Encounter for screening for malignant neoplasm of lung Fibrosis of lung History of gastroesophageal reflux (GERD) Hyperlipidemia Hypertension Lung nodule Pseudoaneurysm Pulmonary emphysema Smoking greater than 30 pack years Stroke Surgical History H/O total hysterectomy History of surgery on lower extremity Family History Other Cancer Diabetes Social History Smoking Status: Never smoker alcohol intake: never counseling provided: provider counseling substance use type: denies use current occupational status: retired Travel in the last 8 weeks: None household members: spouse housing: house number of children: 4 current occupational exposures/hazards: No caffeine: Yes (coffee) ROS Obtained: Yes All systems reviewed & no additional complaints except as documented Physical Exam General General appearance: alert Respiratory Respiratory exam: Present normal lung sounds bilaterally; Absent respiratory distress Cardiovascular Cardiovascular exam: Present regular rate; Absent tachycardia Abdominal Exam Abdominal exam: Present soft; Absent tenderness Rectal Exam Rectal exam: Present other (Stage II decubitus ulcer with skin breakdown no fat or muscle or bony involvement) Neurological Exam Neurological exam: Present alert, oriented X3, CN II-XII intact, normal gait and motor sensory deficit (Left lower extremity 4 out of 5 strength she is able to hold it against gravity but only for 1 or 2 seconds) Medical Decision Making Suman Inquiry Pt receiving controlled substance: No Vital Signs: 05/31/23 09:44 05/31/23 09:49 05/31/23 10:01 Temperature 98.0 F Temperature Source Oral Pulse Rate 83 78 Pulse Rate [Radial] 82 Respiratory Rate 16 Blood Pressure 127/65 114/49 L Blood Pressure [Right Arm] 127/65 Blood Pressure Mean Blood Pressure Mean [Right Arm] 85 Blood Pressure Source [Right Arm] Automatic Cuff Blood Pressure Position [Right Arm] Supine 02 Sat by Pulse Oximetry 96 94 L 97 Oxygen Delivery Method Room Air Room Air Room Air 05/31/23 10:30 05/31/23 11:00 05/31/23 11:26 Temperature Temperature Source Pulse Rate 78 84 75 Pulse Rate [Radial] Respiratory Rate Blood Pressure 134/64 189/79 H 189/79 H Blood Pressure [Right Arm] Blood Pressure Mean 87 93 Blood Pressure Mean [Right Arm] Blood Pressure Source [Right Arm] Blood Pressure Position [Right Arm] 02 Sat by Pulse Oximetry 94 L 94 L 95 Oxygen Delivery Method 05/31/23 11:31 05/31/23 12:00 05/31/23 12:30 Temperature Temperature Source Pulse Rate 73 74 73 Pulse Rate [Radial] Respiratory Rate Blood Pressure 145/53 H 150/66 H 146/67 H Blood Pressure [Right Arm] Blood Pressure Mean Blood Pressure Mean [Right Arm] Blood Pressure Source [Right Arm] Blood Pressure Position [Right Arm] 02 Sat by Pulse Oximetry 97 95 95 Oxygen Delivery Method Room Air Room Air Room Air Lab Data Lab results reviewed: Yes I reviewed the patient's lab results. Lab Results 05/31/23 09:50: WBC 0.9 L*, RBC 4.60, Hgb 13.6, Hct 40.7, MCV 88.6, MCH 29.5, MCHC 33.3, RDW 14.0, Plt Count 126 L, MPV 8.8, Neut % (Auto) 8.9 L, Lymph % (Auto) 82.5 H, Tyler % (Auto) 1.1 L, Eos % (Auto) 7.2, Baso % (Auto) 0.3, Neut # (Auto) 0.1 L*, Lymph # (Auto) 0.7, Tyler # (Auto) 0.0 L, Eos # (Auto) 0.1, Baso # (Auto) 0.0, Total Counted 25, Neutrophils % (Manual) 4 L, Lymphocytes % (Manual) 80 H, Monocytes % (Manual) 4, Eosinophils % (Manual) 12 H, Platelet Estimate Slight decrease, Poikilocytosis 1+, Ovalocytes 1+, Sodium 133 L, Potassium 4.4, Chloride 103, Carbon Dioxide 26, Anion Gap 8.4, BUN 36 H, Creatinine 1.20 H, Estimated Creat Clear 36, Estimated GFR 44 L, Est GFR ( Amer) 53 L, Glucose 188 H, Calcium 8.4, Phosphorus 4.3, Magnesium 1.3 L, Total Bilirubin 0.6, AST 53 H D, ALT 55 D, Alkaline Phosphatase 87, Troponin I < 0.01, NT-Pro-B Natriuret Pep 492 H, Total Protein 6.5, Albumin 3.2 L, Globulin 3.3 H, Albumin/Globulin Ratio 1.0 L 05/31/23 11:00: SARS-CoV-2 (PCR) Not detected, Influenza A Untype (PCR) Not detected, Influenza Type B (PCR) Not detected 05/31/23 13:05: Urine Color Yellow, Urine Appearance Sl cloudy, Urine pH 5.5, Ur Specific [place] 1.025, Urine Protein Negative, Urine Glucose (UA) Negative, Urine Ketones Negative, Urine Blood Negative, Urine Nitrate Negative, Urine Bilirubin Negative, Urine Urobilinogen 0.2, Ur Leukocyte Esterase Negative 05/31/23 09:50 05/31/23 09:50 Orders (Tests/Meds): ED MEDICATIONS Discontinued Medications Generic Name Dose Route Start Last Admin Trade Name Bj PRN Reason Stop Dose Admin Lactated Ringer's 1,000 mls @ 999 mls/hr 05/31/23 10:45 05/31/23 10:54 Lactated Ringer's 1000 Ml Bag IV 05/31/23 11:45 999 mls/hr .Q1H1M CHRISTINA Administration Magnesium Sulfate 2 gm in 50 mls @ 50 mls/hr 05/31/23 12:22 05/31/23 12:35 Magnesium Sulfate 2gm/50ml Premix IV 05/31/23 13:21 50 mls/hr ONCE ONE Administration Iopamidol 75 ml 05/31/23 13:35 05/31/23 13:37 Iopamidol-370 (76%);100ml Bottle IV 05/31/23 13:36 75 ml ONCE ONE Administration Morphine Sulfate 2 mg 05/31/23 10:39 05/31/23 10:53 Morphine 4mg/Ml Syringe IV 05/31/23 10:40 2 mg ONCE ONE Administration Ondansetron HCl 4 mg 05/31/23 10:39 05/31/23 10:53 Ondansetron 4mg/2ml Vial IV 05/31/23 10:40 4 mg ONCE ONE Administration Sodium Chloride 10 ml 05/31/23 13:35 05/31/23 13:36 Sodium Chloride 0.9% 10ml Syr (Rad Only) IV 05/31/23 13:36 10 ml ONCE ONE Administration ORDERS Category Date Time Status CT chest w con Stat Cat Scan 05/31/23 12:[address] head/brain wo con Stat Cat Scan 05/31/23 10:39 Completed CXR --portable [XR chest portable] Stat Exams 05/31/23 10:40 Completed BNP [Brain Natriuretic Peptide] Stat Lab 05/31/23 09:50 Completed CBC w/Auto Diff [Complete Blood Count Auto Diff] Stat Lab 05/31/23 09:50 Completed CMP [Comprehensive Metabolic Panel] Stat Lab 05/31/23 09:50 Completed Magnesium Stat Lab 05/31/23 09:50 Completed Phosphorous Stat Lab 05/31/23 09:50 Completed Rapid PCR Covid and Flu A/B Stat Lab 05/31/23 11:00 Completed Trop I [Troponin I] Stat Lab 05/31/23 09:50 Completed Troponin I Q3H Lab 05/31/23 13:45 Ordered Troponin I Q3H Lab 05/31/23 16:45 Ordered UA [Urinalysis and Microscopic] Stat Lab 05/31/23 13:05 Results ECG initial Besson Routine Y 05/31/23 10:57 Completed Medical Decision Narrative: Patient is a 73-year-old female with profound weakness with increasing left lower extremity weakness with a history of CVA. She also looks profoundly dehydrated and likely her symptoms are multifactorial. I suspect that her lower extremity weakness is anamnestic in the setting of exacerbating symptoms such as metabolic abnormalities dehydration infection etc. She does have a mild cough but her pulmonary and cardiac exam are normal we will work her up for possible pneumonia COVID and flu etc. CT scan of her head is also being performed. I had a talk with the family already regarding whether or not they want to be admitted for further evaluation from a rehab and PT OT standpoint and to discuss resources send placement or set up of home health etc. She does have a stage II decubitus ulcer as well demonstrating that she is not able to be very mobile at home and that they are having a difficult time taking care of her. Chemical offloading and dressing was placed on this in the emergency department. EKG personally interpreted which shows a ventricular rate of 76 normal sinus rhythm there is some Q waves in the inferior leads which are nonspecific but may represent an old infarction no acute ST segment elevations depressions or T wave inversions to suggest acute ischemia there is a sinus arrhythmia no other significant or pathologic conduction abnormality. Reassessment 1:40 PM patient remained stable. CT scan of her head does not reveal any definitive abnormality. Chest x-ray performed which I personally interpreted which shows fullness in the right infrahilar and right lower lobe area read as possible worsening bibasilar pneumonia and or atelectasis. Looking back on her previous x-rays this is very similar to past films also looking at the CAT scan that she had done at the end of last year very similar to today's findings however given the fact that this would dramatically exchange consultant if there is developing pneumonia given her significant neutropenia went ahead and proceeded with a CAT scan of the patient's chest. This was performed I personally interpreted this I do not see any focal consolidation in the lower lobes however there are some nonspecific inflammatory changes in the left base which may be read as possible infectious versus inflammatory changes. I favor inflammatory however in the setting of severe neutropenia patient's very high risk for bacterial infections. At the moment she is afebrile very stable on holding off on antibiotics we will wait for radiology read but in the meantime patient and family would like to be admitted. I discussed with him further regarding their treatment she has been given life expectancy of 1 year with her current symptoms and her chemotherapy is palliative in nature. Family would like to be admitted to have discussions with case management as they have a hard time caring for her at home and also would like hospice to be involved if possible. I will speak with Dr. Neil Castro with hospital medicine to admit the patient for further evaluation and treatment. Critical Care Critical Care Time Critical Care Time: Yes Attestation: On 05/31/23, the high probability of a clinically significant, sudden or life threatening deterioration of the following system(s) required my full and direct attention, intervention and personal management. The time I documented below is in addition to time spent performing reported procedures but includes the following listed in this critical care notation. Total Time Total Critical Care Time: 35
[2023-05-31] MEDS: ONDANSETRON 4MG/2ML VIAL 4 MG IV (10:53)
[2023-05-31] MEDS: MORPHINE 4MG/ML SYRINGE 2 MG IV (10:53)
[2023-05-31] MEDS: LACTATED RINGERS 1000ML 1,000 ML 999 ML IV (10:54)
[2023-05-31 10:57] LABS: Alanine Aminotransferase 55 U/L (12-78); Albumin Level 3.2 g/dl (3.5-5.0); Alkaline Phosphatase 87 U/L (38-126); Anion Gap 8.4 mEq/L (5-15); Aspartate Amino Transferase 53 U/L (14-36); Basophils % 0.3 % (0.1-2.0); Bilirubin,Total 0.6 mg/dl (0.2-1.3); Blood Urea Nitrogen 36 mg/dl (7-17); Calcium 8.4 mg/dl (8.4-10.2); Carbon Dioxide 26 mmol/L (22.0-30.0); Chloride 103 mmol/L (98-107); Creatinine Clearance Estimated 36 mL/min (50-200); Eosinophils # 0.1 K/mm3 (0.0-0.4); Eosinophils % 7.2 % (0.1-12.0); Estimated Glomerular Filt Rate 44 ml/min (>60); GFR (African American) 53 ML/MIN (>60); Globulin 3.3 g/dL (1.3-3.2); Glucose 188 mg/dl (74-100); Hematocrit 40.7 % (37.0-47.0); Hemoglobin 13.6 g/dL (12.2-16.2); Lymphocytes # 0.7 K/mm3 (0.7-4.5); Lymphocytes % 82.5 % (10-50); Mean Corpuscular HGB Conc 33.3 g/dL (31.8-35.4); Mean Corpuscular Hemoglobin 29.5 pg (27.0-31.2); Mean Corpuscular Volume 88.6 fl (81-99); Mean Platelet Volume 8.8 fl (7.4-10.4); Monocytes % 1.1 % (1.7-9.3); Neutrophils # 0.1 K/mm3 (1.8-7.8); Platelet Count 126 K/mm3 (142-424); Potassium 4.4 mmoL/L (3.5-5.1); Sodium 133 mmol/L (136-145); Total Protein,Serum 6.5 g/dl (6.3-8.2)
--- NOTE | 2023-05-31 10:57 | ECG_ITS ---
APPROVED REPORT Exam: Resting ECG HR:76 bpm ECG Measurements Heart Rate 76 AXES MO 127 P 78 QRSd 91 QRS 73 QT 381 T 70 QTc 412 Conclusion SINUS RHYTHM WITH OCCASIONAL ECTOPIC PREMATURE COMPLEXES BORDERLINE ECG UNCONFIRMED REPORT Electronically signed by : Morgan Montalvo MD 05/31/2023 20:06:47
[2023-05-31 10:58] LABS: Magnesium 1.3 mg/dl (1.6-2.3); Phosphorous 4.3 mg/dl (2.5-4.5)
[2023-05-31 11:02] LABS: Neutrophils % 8.9 % (37.0-80.0); White Blood Count 0.9 K/mm3 (4.8-10.8)
--- NOTE | 2023-05-31 11:02 | PC.NURSE ---
CRITICAL WBC 0.9 RECEIVED FROM [facility] IN LAB. PT NAME AND R/V. DR. PEMBERTON NOTIFIED. NO NEW ORDERS
[2023-05-31 11:03] LABS: MANUAL DIFFERENTIAL MANUAL DIFFERENTIAL (MANUAL DIFF)
--- NOTE | 2023-05-31 11:03 | PC.NURSE ---
lab called with critical transfer call to charge nurse
[2023-05-31 11:05] LABS: Coronavirus 19, PCR Not Detected (NotDetected); Influenza A, PCR Not Detected (NotDetected); Influenza B, PCR Not Detected (NotDetected)
[2023-05-31 11:07] LABS: NT Pro Brain Natriuretic Pep. 492 pg/mL (0-450)
[2023-05-31 11:11] LABS: Troponin I < 0.01 ng/ml (0.00-0.034)
[2023-05-31 11:16] LABS: Eosinophils % 12 % (0-3); Lymphocytes % 80 % (10-50); Monocytes % 4 % (2-9); Neutrophils % 4 % (42-76); Total Cells Counted 25
[2023-05-31 11:17] LABS: Ovalocytes 1+; Platelet Estimate Slight Decrease; Poikilocytosis 1+
--- NOTE | 2023-05-31 11:21 | PC.NURSE ---
pt returned from ct
[2023-05-31] MEDS: MAGNESIUM SULFATE IN WATER 2 GM/50 ML PIGGYBACK IV (12:35)
--- NOTE | 2023-05-31 12:48 | CT_ITS ---
FINAL REPORT TECHNIQUE: After the administration of intravenous contrast, axial images through the chest were performed by computed tomography.This study was performed with techniques to keep radiation doses as low as reasonably achievable, (ALARA). Individualized dose reduction techniques using automated exposure control or adjustment of mA and/or kV according to the patient''s size were employed. CLINICAL HISTORY: f/u abnormal CXR, pna vs. worsening malignancy COMPARISON: PET dated 05/11/2023 FINDINGS: Mediastinal adenopathy is again identified. Precarinal node measures 24 mm. The heart size is normal. There is no pericardial or pleural effusion. Right lower lobe nodule measures 16 mm, previously measured 24 mm. There is moderate emphysema and moderate pulmonary scarring. Limited images of the upper abdomen reveal multiple hepatic masses consistent with hepatic metastatic disease. Largest mass in the lateral segment of the left hepatic lobe measures 5.6 x 3.4 cm. Other masses were all present on prior PET scan. There is mild left adrenal gland enlargement, may represent hyperplasia versus metastases. IMPRESSION: Persistent neoplastic involvement in the chest and upper abdomen. Right lower lobe nodule, slightly decreased in size. Other findings not significantly improved. Reviewed, Interpreted and Dictated by Jeff Avila III, MD Transcribed by Michelle Davey Authenticated and [facility]
[2023-05-31 13:16] LABS: Appearance,Urine SL CLOUDY (Clear); Bilirubin,Urine Negative (Negative); Blood, Urine Negative (Negative); Color,Urine YELLOW (Yellow); Glucose,Urine (UA) Negative (Negative); Ketones,Urine Negative (Negative); Leukocyte Esterase,Urine Negative (Negative); Microscopic, Urine URINE MICROSCOPIC (MICROSCOPIC); Nitrate,Urine Negative (Negative); PH,Urine 5.5 (5.0-8.5); Protein,Urine Negative (Negative); Specific Gravity, Urine 1.025 (1.005-1.030); Urobilinogen,Urine 0.2 EU/dl (0.2)
[2023-05-31] MEDS: SODIUM CHLORIDE 0.9% 10ML SYR (RAD ONLY) 10 ML IV (13:36)
[2023-05-31] MEDS: IOPAMIDOL-370 (76%);100ML BOTTLE 75 ML IV (13:37)
--- NOTE | 2023-05-31 13:39 | PC.NURSE ---
dr boston at bedside to update pt and family
--- NOTE | 2023-05-31 13:46 | PC.NURSE ---
dr boston speaking with dr toscano for admission
[2023-05-31 13:49] LABS: Bacteria,Urine 3+ /lpf
[2023-05-31 13:50] LABS: Amorphous Sediment,Urine Trace /lpf
--- NOTE | 2023-05-31 14:04 | PC.NURSE ---
CARE MANAGEMENT AT BEDSIDE TO DISCUSS HOSPICE
--- NOTE | 2023-05-31 14:18 | SW/DCPLANNER ---
Addendum entered by Shaniqua Jimenez 05/31/23 14:44: Patient/family agree w/ returning home from ED and Hospice admitting at home this evening and delivering DME. I have also updated Susan velasco/ Hospice regarding discharge plans. Original Note: I was called to ED to speak w/ patient and her family regarding Hospice services. Patient, daughter and granddaughter are all agreeable to Hospice services. Patient information was faxed to Susan velasco/ [facility]. Susan stated that their nursing staff can deliver DME and admit patient at home this evening. I have updated MD and patient/family regarding plans.
== END 2023-05-31 14:30 | disposition hospice, home (50) ==
PROVIDERS: Emergency Provider Student in an Organized Health Care Education/Training Program; PCP Nurse Practitioner Family
DX: E86.0 Dehydration (principal); D69.6 Thrombocytopenia, unspecified; E83.42 Hypomagnesemia; L89.152 Pressure ulcer of sacral region, stage 2; C34.90 Malignant neoplasm of unspecified part of unspecified bronchus or lung; C78.7 Secondary malignant neoplasm of liver and intrahepatic bile duct; R53.1 Weakness; I69.354 Hemiplegia and hemiparesis following cerebral infarction affecting left non-dominant side; J43.9 Emphysema, unspecified; E11.9 Type 2 diabetes mellitus without complications; J84.10 Pulmonary fibrosis, unspecified; E78.5 Hyperlipidemia, unspecified; I10 Essential (primary) hypertension; I49.9 Cardiac arrhythmia, unspecified; Z74.01 Bed confinement status; Z87.891 Personal history of nicotine dependence
CPT/HCPCS: 70450; 71045; 71260; 80053; 81001; 83735; 83880; 84100; 84484; 85007; 85025; 87086; 87636; 93005; 96361; 96365; 96375; 99291; J2405; J3475; Q9967

== ENCOUNTER 2023-06-26 09:02 | Outpatient (CLI) | payer MEDICARE, OTHER, SELFPAY ==
[2023-06-26 09:04] VITALS: BMI 19.0
[2023-06-26 09:28] LABS: Basophils # 0.1 K/mm3 (0-0.2); Basophils % 0.7 % (0.1-2.0); Eosinophils # 0.2 K/mm3 (0.0-0.4); Eosinophils % 1.8 % (0.1-12.0); Hematocrit 39.2 % (37.0-47.0); Hemoglobin 12.9 g/dL (12.2-16.2); Lymphocytes # 1.4 K/mm3 (0.7-4.5); Lymphocytes % 12.3 % (10-50); Mean Corpuscular HGB Conc 32.9 g/dL (31.8-35.4); Mean Corpuscular Hemoglobin 29.3 pg (27.0-31.2); Mean Corpuscular Volume 88.8 fl (81-99); Mean Platelet Volume 8.5 fl (7.4-10.4); Monocytes # 0.6 K/mm3 (0.1-1.0); Monocytes % 5.7 % (1.7-9.3); Neutrophils # 8.9 K/mm3 (1.8-7.8); Neutrophils % 79.5 % (37.0-80.0); Platelet Count 361 K/mm3 (142-424); Red Blood Count 4.42 M/mm3 (4.20-5.40); Red Cell Distribution Width 15.5 % (11.5-17.5); White Blood Count 11.3 K/mm3 (4.8-10.8)
[2023-06-26 09:39] LABS: Alanine Aminotransferase 20 U/L (12-78); Albumin Level 3.7 g/dl (3.5-5.0); Albumin/Globulin Ratio 1.2 (1.1-1.8); Alkaline Phosphatase 77 U/L (38-126); Anion Gap 8.7 mEq/L (5-15); Aspartate Amino Transferase 46 U/L (14-36); Bilirubin,Total 0.5 mg/dl (0.2-1.3); Blood Urea Nitrogen 21 mg/dl (7-17); Calcium 9.3 mg/dl (8.4-10.2); Carbon Dioxide 31 mmol/L (22.0-30.0); Chloride 101 mmol/L (98-107); Creatinine Clearance Estimated 35 mL/min (50-200); Estimated Glomerular Filt Rate 48 ml/min (>60); GFR (African American) 59 ML/MIN (>60); Globulin 3.2 g/dL (1.3-3.2); Glucose 194 mg/dl (74-100); Potassium 3.7 mmoL/L (3.5-5.1); Sodium 137 mmol/L (136-145); Total Protein,Serum 6.9 g/dl (6.3-8.2)
--- NOTE | 2023-07-03 13:52 | DIET.NUTRFU ---
new chem patient, went home on hospice with short life expectancy. No dietary needs at this time.
== END 2023-06-26 09:10 | disposition home or self-care (01) ==
PROVIDERS: PCP Nurse Practitioner Family; Visit Provider Internal Medicine Medical Oncology
DX: C34.90 Malignant neoplasm of unspecified part of unspecified bronchus or lung (principal)
CPT/HCPCS: 36592; 80053; 85025